=== PATIENT | female | born 1970 | race Caucasian/White ===

== ENCOUNTER 2019-11-29 11:16 | Outpatient (CLI) | payer BC, SELFPAY ==
--- NOTE | ~2019-11-29 | MM_ITS ---
EXAMINATION: MM screening frankie BI w maryjo HISTORY: Screening mammogram TECHNIQUE: Craniocaudal and mediolateral oblique 3-D tomosynthesis images were obtained and synthetic 2-D images were generated. CAD analysis was submitted and interpreted. COMPARISON: 11/01/2018 bilateral diagnostic digital mammogram 10/19/2018, 10/15/2017, 10/01/2016 bilateral digital screening mammogram examinations BREAST PARENCHYMAL COMPOSITION: The breasts are heterogeneously dense, which may obscure small masses . FINDINGS: Stable fibroglandular asymmetry since 10/01/2016.. There is no evidence of suspicious mass, calcification, or architectural distortion to suggest malignancy in either breast. There has been no suspicious interval change. IMPRESSION: 1. No mammographic evidence of malignancy. 2. Recommend routine screening mammography in one year. BI-RADS Category 2: Benign finding(s). Reviewed, dictated and finalized at location A.
== END 2019-11-29 11:17 | disposition home or self-care (01) ==
PROVIDERS: PCP Family Medicine; Visit Provider Family Medicine
DX: Z12.31 Encounter for screening mammogram for malignant neoplasm of breast (principal)
CPT/HCPCS: 77063; 77067

== ENCOUNTER 2020-12-13 08:11 | Outpatient (CLI) | payer BC, SELFPAY ==
--- NOTE | ~2020-12-13 | MM_ITS ---
EXAMINATION: MM screening frankie BI w maryjo HISTORY: Screening mammogram TECHNIQUE: Craniocaudal and mediolateral oblique 3-D tomosynthesis images were obtained and synthetic 2-D images were generated. CAD analysis was submitted and interpreted. COMPARISON: 11/29/2019 bilateral digital screening mammogram 11/01/2018 bilateral diagnostic digital mammogram 10/15/2017, 10/01/2016 bilateral digital screening mammogram examinations BREAST PARENCHYMAL COMPOSITION: The breasts are heterogeneously dense, which may obscure small masses . FINDINGS: Multiple punctate benign microcalcifications are noted bilaterally. There is no evidence of suspicious mass, calcification, or architectural distortion to suggest malignancy in either breast. There has been no suspicious interval change. IMPRESSION: 1. No mammographic evidence of malignancy. 2. Recommend routine screening mammography in one year. BI-RADS Category 2: Benign finding(s). Reviewed, dictated and finalized at location A.
== END 2020-12-13 08:12 | disposition home or self-care (01) ==
LOC: ANHIMG 08:13
PROVIDERS: PCP Family Medicine; Visit Provider Family Medicine
DX: Z12.31 Encounter for screening mammogram for malignant neoplasm of breast (principal)
CPT/HCPCS: 77063; 77067

== ENCOUNTER 2020-12-13 09:45 | Outpatient (RCR) | payer BC, SELFPAY ==
[2020-10-15 09:54] LABS: Hematocrit 42.3 % (37.0-47.0); Hemoglobin 13.8 g/dL (12.0-15.0); Mean Corpuscular HGB Conc 32.6 g/dl (32-36); Mean Corpuscular Hemoglobin 31.5 pg (26-34); Mean Corpuscular Volume 96.6 fl (80-100); Mean Platelet Volume 11.4 fl (7.4-10.4); Platelet Count Result 343 k/mm3 (150-375); Red Blood Count 4.38 M/mm3 (4.2-5.4); Red Cell Distribution Width 15.3 % (11.5-14.5); White Blood Count 8.8 K/mm3 (4.5-10.0)
[2020-10-15 10:39] LABS: Add Urine Microscopic? YES; Appearance Urine Cloudy (Clear); Bacteria Urine Trace /hpf; Bilirubin Urine Negative (Negative); Blood Urine Negative (Negative); Color Urine Yellow (Yellow); Glucose Urine UA Negative (Negative); Ketones Urine Negative (Negative); Leukocyte Esterase Ur Negative LEU/UL (Negative); Mucus Urine Rare /lpf; Nitrate Urine Negative (Negative); Protein Urine Negative (Negative); RBC Urine 0-2 /hpf (0-2); Specific Grav Ur 1.021 (1.001-1.035); Squamous Epithelial Cell Urine Many /hpf (Few); Urobilinogen Urine Negative mg/dL (<2.0); WBC Urine 0-3 /hpf
[2020-10-15 10:48] LABS: Erythrocyte Sedimentation Rate 15 mm/hr (0-20)
[2020-10-15 22:27] LABS: Alanine Aminotransferase 14 U/L (4-35); Albumin Level 4.4 g/dL (3.5-5.1); Alkaline Phosphatase 61 U/L (38-126); Anion Gap 4 mmol/L (8-16); Aspartate Amino Transferase 24 U/L (14-36); Bilirubin,Total 0.8 mg/dL (0.2-1.3); Blood Urea Nitrogen 15 mg/dL (7-17); Calcium 9.3 mg/dL (8.4-10.2); Carbon Dioxide 29 mmol/L (22-30); Chloride 105 mmol/L (98-107); Estimated Glomerular Filt Rate > 60; Glucose 95 mg/dL (65-105); Potassium 4.2 mmol/L (3.4-5.0); Sodium 138 mmol/L (137-145)
[2020-12-13 10:24] LABS: Hematocrit 38.8 % (37.0-47.0); Hemoglobin 12.5 g/dL (12.0-15.0); Mean Corpuscular HGB Conc 32.2 g/dl (32-36); Mean Corpuscular Volume 96.3 fl (80-100); Mean Platelet Volume 11.2 fl (7.4-10.4); Platelet Count Result 310 k/mm3 (150-375); Red Blood Count 4.03 M/mm3 (4.2-5.4); Red Cell Distribution Width 15.5 % (11.5-14.5); White Blood Count 9.1 K/mm3 (4.5-10.0)
[2020-12-13 10:40] LABS: Add Urine Microscopic? YES; Appearance Urine Cloudy (Clear); Bacteria Urine Trace /hpf; Bilirubin Urine Negative (Negative); Blood Urine Negative (Negative); Color Urine Yellow (Yellow); Glucose Urine UA Negative (Negative); Ketones Urine Negative (Negative); Leukocyte Esterase Ur Negative LEU/UL (Negative); Mucus Urine Rare /lpf; Nitrate Urine Negative (Negative); Protein Urine Negative (Negative); RBC Urine 0-2 /hpf (0-2); Specific Grav Ur 1.018 (1.001-1.035); Squamous Epithelial Cell Urine Many /hpf (Few); Urobilinogen Urine Negative mg/dL (<2.0); WBC Urine 0-3 /hpf
[2020-12-13 10:45] LABS: Alanine Aminotransferase 11 U/L (4-35); Albumin Level 3.9 g/dL (3.5-5.1); Alkaline Phosphatase 64 U/L (38-126); Anion Gap 3 mmol/L (8-16); Aspartate Amino Transferase 16 U/L (14-36); Bilirubin,Total 0.1 mg/dL (0.2-1.3); Blood Urea Nitrogen 9 mg/dL (7-17); Calcium 8.8 mg/dL (8.4-10.2); Carbon Dioxide 29 mmol/L (22-30); Chloride 108 mmol/L (98-107); Estimated Glomerular Filt Rate > 60; Glucose 84 mg/dL (65-105); Potassium 3.8 mmol/L (3.4-5.0); Sodium 140 mmol/L (137-145)
[2020-12-13 11:02] LABS: Erythrocyte Sedimentation Rate 17 mm/hr (0-20)
== END 2021-01-13 23:59 | disposition home or self-care (01) ==
LOC: ANHLAB 09:45
PROVIDERS: PCP Family Medicine; Visit Provider Internal Medicine
DX: M32.9 Systemic lupus erythematosus, unspecified (principal)
CPT/HCPCS: 36415; 80053; 81001; 85027; 85652; 99212; G0463

== ENCOUNTER 2021-02-11 13:03 | Outpatient (CLI) | payer BC, SELFPAY ==
--- NOTE | ~2021-02-11 | XR_ITS ---
EXAMINATION: XR chest 2V 02/11/2021 13:22 INDICATION: Fatigue. Dyspnea. PROCEDURE: 2 view chest COMPARISON: No prior studies for comparison. FINDINGS: The lungs are clear. The cardiomediastinal silhouette is within normal limits. There are no pleural effusions. There is no pneumothorax suspected. IMPRESSION: 1: NO ACUTE CARDIOPULMONARY DISEASE. Reviewed, dictated and finalized at location A.
[2021-02-11 13:53] LABS: Basophils Absolute Auto 0.2 K/mm3 (0.0-0.1); Basophils Percent Auto 1.5 % (0.2-1.2); Eosinophils Absolute Auto 0.2 K/mm3 (0-0.3); Eosinophils Percent Auto 1.9 % (0-4.4); Hematocrit 47.5 % (37.0-47.0); Hemoglobin 15.4 g/dL (12.0-15.0); Immature Granulocyte Absolute 0.17 K/mm3 (0.00-0.031); Immature Granulocyte Percent A 1.6 % (0-0.5); Lymphocytes Absolute Auto 3.67 K/mm3 (0.9-3.2); Lymphocytes Percent Auto 33.6 % (18.3-44.2); Mean Corpuscular HGB Conc 32.4 g/dl (32-36); Mean Corpuscular Hemoglobin 30.1 pg (26-34); Mean Platelet Volume 10.5 fl (7.4-10.4); Monocytes Absolute Auto 0.7 K/mm3 (0.1-0.6); Neutrophils Absolute Auto 6.1 K/mm3 (1.3-6.7); Neutrophils Percent Auto 55.4 % (45.5-73.1); Platelet Count Result 425 k/mm3 (150-375); Red Blood Count 5.11 M/mm3 (4.2-5.4); Red Cell Distribution Width 16.4 % (11.5-14.5); White Blood Count 10.9 K/mm3 (4.5-10.0)
[2021-02-11 14:00] LABS: Add Urine Microscopic? YES; Appearance Urine Cloudy (Clear); Bilirubin Urine Negative (Negative); Blood Urine 3+ (Negative); Calcium Oxalate Crystals Urine Present /hpf; Color Urine Amber (Yellow); Glucose Urine UA Negative (Negative); Hyaline Casts Urine 20-29 /lpf; Ketones Urine Negative (Negative); Leukocyte Esterase Ur Negative LEU/UL (Negative); Mucus Urine Few /lpf; Nitrate Urine Negative (Negative); Protein Urine Negative (Negative); RBC Urine 0-2 /hpf (0-2); Squamous Epithelial Cell Urine Occasional /hpf (Few)
[2021-02-11 14:01] LABS: Amylase 66 U/L (30-110); Lipase 175 U/L (23-300)
[2021-02-11 14:05] LABS: Alanine Aminotransferase 29 U/L (4-35); Albumin Level 3.8 g/dL (3.5-5.1); Alkaline Phosphatase 76 U/L (38-126); Anion Gap 10 mmol/L (8-16); Aspartate Amino Transferase 27 U/L (14-36); Bilirubin,Total 0.8 mg/dL (0.2-1.3); Blood Urea Nitrogen 13 mg/dL (7-17); CRP 3.5 mg/dL (<1.0); Carbon Dioxide 26 mmol/L (22-30); Chloride 97 mmol/L (98-107); Estimated Glomerular Filt Rate > 60; Glucose 82 mg/dL (65-110); Potassium 3.6 mmol/L (3.4-5.0); Sodium 133 mmol/L (137-145)
[2021-02-11 14:33] LABS: Thyroid Stimulating Hormone 0.981 uIU/mL (0.465-4.680)
[2021-02-11 16:13] LABS: Erythrocyte Sedimentation Rate 20 mm/hr (0-20)
== END 2021-02-11 13:04 | disposition home or self-care (01) ==
LOC: ANHIMG 13:05
PROVIDERS: Internal Medicine; PCP Family Medicine; Visit Provider Physician Assistant
DX: R53.83 Other fatigue (principal); M79.10 Myalgia, unspecified site; R50.9 Fever, unspecified; R76.0 Raised antibody titer; Z79.899 Other long term (current) drug therapy
CPT/HCPCS: 36415; 71046; 80053; 81001; 82150; 83690; 84443; 85025; 85652; 86140

== ENCOUNTER → 2021-02-14 06:50 | Outpatient (CLI) | payer BC, SELFPAY ==
[2021-02-14 18:53] LABS: SARS-CoV-2 RNA PCR Negative
== END ==
PROVIDERS: PCP Family Medicine; Visit Provider Physician Assistant
DX: R50.9 Fever, unspecified (principal); Z20.822 Contact with and (suspected) exposure to COVID-19
CPT/HCPCS: C9803; U0003; U0005

== ENCOUNTER 2021-04-22 09:17 | Outpatient (RCR) | payer BC, SELFPAY ==
[2021-02-21 09:49] LABS: Hemoglobin 14.5 g/dL (12.0-15.0); Immature Platelet Fraction Pct 7.2 % (0.9-11.2); Mean Corpuscular HGB Conc 32.2 g/dl (32-36); Mean Corpuscular Hemoglobin 30.1 pg (26-34); Mean Corpuscular Volume 93.6 fl (80-100); Mean Platelet Volume 10.9 fl (7.4-10.4); Platelet Count Result 501 k/mm3 (150-375); Red Blood Count 4.81 M/mm3 (4.2-5.4); Red Cell Distribution Width 17.1 % (11.5-14.5); White Blood Count 9.7 K/mm3 (4.5-10.0)
[2021-02-21 09:57] LABS: Add Urine Microscopic? YES; Appearance Urine Cloudy (Clear); Bilirubin Urine Negative (Negative); Blood Urine Negative (Negative); Color Urine Yellow (Yellow); Glucose Urine UA Negative (Negative); Ketones Urine Negative (Negative); Leukocyte Esterase Ur Negative LEU/UL (Negative); Mucus Urine Rare /lpf; Nitrate Urine Negative (Negative); Protein Urine Negative (Negative); RBC Urine 0-2 /hpf (0-2); Specific Grav Ur 1.017 (1.001-1.035); Squamous Epithelial Cell Urine Occasional /hpf (Few); Urobilinogen Urine Negative mg/dL (<2.0); WBC Urine 0-3 /hpf
[2021-02-21 09:57] LABS: Alanine Aminotransferase 20 U/L (4-35); Albumin Level 3.4 g/dL (3.5-5.1); Alkaline Phosphatase 78 U/L (38-126); Anion Gap 5 mmol/L (8-16); Aspartate Amino Transferase 26 U/L (14-36); Bilirubin,Total 0.4 mg/dL (0.2-1.3); Blood Urea Nitrogen 10 mg/dL (7-17); Calcium 9.5 mg/dL (8.4-10.2); Carbon Dioxide 23 mmol/L (22-30); Chloride 110 mmol/L (98-107); Estimated Glomerular Filt Rate > 60; Glucose 119 mg/dL (65-110); Potassium 3.9 mmol/L (3.4-5.0); Sodium 138 mmol/L (137-145)
[2021-02-21 13:24] LABS: Eosinophils Absolute Manual 0.19 K/mm3 (0.02-0.5); Eosinophils Percent Manual 2 % (0-4); Lymphocytes Absolute Manual 2.91 K/mm3 (1.1-4.5); Monocytes Absolute Manual 1.35 K/mm3 (0.1-0.90); Monocytes Percent Manual 14 % (3-9); Neutrophils Percent Manual 54 % (46-73); Platelet Estimate Increased (Adequate); Total Cells Counted 100
[2021-04-22 09:45] LABS: Hematocrit 41.4 % (37.0-47.0); Hemoglobin 13.5 g/dL (12.0-15.0); Mean Corpuscular HGB Conc 32.6 g/dl (32-36); Mean Corpuscular Hemoglobin 31.1 pg (26-34); Mean Corpuscular Volume 95.4 fl (80-100); Mean Platelet Volume 11.2 fl (7.4-10.4); Platelet Count Result 291 k/mm3 (150-375); Red Blood Count 4.34 M/mm3 (4.2-5.4); Red Cell Distribution Width 15.1 % (11.5-14.5); White Blood Count 7.4 K/mm3 (4.5-10.0)
[2021-04-22 10:01] LABS: Add Urine Microscopic? YES; Appearance Urine Clear (Clear); Bacteria Urine Trace /hpf; Bilirubin Urine Negative (Negative); Blood Urine Negative (Negative); Color Urine Yellow (Yellow); Glucose Urine UA Negative (Negative); Ketones Urine Negative (Negative); Leukocyte Esterase Ur Negative LEU/UL (Negative); Mucus Urine Few /lpf; Nitrate Urine Negative (Negative); Protein Urine 1+ mg/dL (Negative); Squamous Epithelial Cell Urine Moderate /hpf (Few)
[2021-04-22 10:04] LABS: Alanine Aminotransferase 19 U/L (4-35); Albumin Level 4.5 g/dL (3.5-5.1); Alkaline Phosphatase 67 U/L (38-126); Anion Gap 10 mmol/L (8-16); Aspartate Amino Transferase 24 U/L (14-36); Bilirubin,Total 0.7 mg/dL (0.2-1.3); Blood Urea Nitrogen 10 mg/dL (7-17); Calcium 9.4 mg/dL (8.4-10.2); Carbon Dioxide 24 mmol/L (22-30); Chloride 106 mmol/L (98-107); Estimated Glomerular Filt Rate > 60; Glucose 102 mg/dL (65-110); Potassium 3.7 mmol/L (3.4-5.0); Sodium 140 mmol/L (137-145)
[2021-04-22 10:45] LABS: Erythrocyte Sedimentation Rate 15 mm/hr (0-20)
[2021-04-25 10:42] LABS: ANCA Screen Negative (Negative)
== END 2021-05-22 23:59 | disposition home or self-care (01) ==
LOC: ANHLAB 09:17
PROVIDERS: PCP Family Medicine; Visit Provider Internal Medicine
DX: M32.9 Systemic lupus erythematosus, unspecified (principal)
CPT/HCPCS: 36415; 80053; 81001; 85025; 85027; 85055; 85652; 86021; 99212; G0463

== ENCOUNTER 2021-06-20 09:01 | Outpatient (RCR) | payer BC, SELFPAY ==
[2021-06-20 09:38] LABS: Hematocrit 41.9 % (37.0-47.0); Hemoglobin 13.7 g/dL (12.0-15.0); Mean Corpuscular HGB Conc 32.7 g/dl (32-36); Mean Corpuscular Hemoglobin 30.4 pg (26-34); Mean Corpuscular Volume 93.1 fl (80-100); Mean Platelet Volume 11.8 fl (7.4-10.4); Platelet Count Result 288 k/mm3 (150-375); Red Cell Distribution Width 15.8 % (11.5-14.5); White Blood Count 9.2 K/mm3 (4.5-10.0)
[2021-06-20 09:50] LABS: Add Urine Microscopic? NO; Appearance Urine Clear (Clear); Bilirubin Urine Negative (Negative); Blood Urine Negative (Negative); Color Urine Yellow (Yellow); Glucose Urine UA Negative (Negative); Ketones Urine Negative (Negative); Leukocyte Esterase Ur Negative LEU/UL (Negative); Nitrate Urine Negative (Negative); Protein Urine Negative (Negative); Specific Grav Ur 1.017 (1.001-1.035); Urobilinogen Urine Negative mg/dL (<2.0)
[2021-06-20 10:08] LABS: Alanine Aminotransferase 15 U/L (4-35); Albumin Level 4.1 g/dL (3.5-5.1); Alkaline Phosphatase 62 U/L (38-126); Anion Gap 7 mmol/L (8-16); Aspartate Amino Transferase 18 U/L (14-36); Bilirubin,Total 0.4 mg/dL (0.2-1.3); Blood Urea Nitrogen 10 mg/dL (7-17); Calcium 9.1 mg/dL (8.4-10.2); Carbon Dioxide 25 mmol/L (22-30); Chloride 104 mmol/L (98-107); Estimated Glomerular Filt Rate > 60; Glucose 97 mg/dL (65-110); Potassium 3.8 mmol/L (3.4-5.0); Sodium 136 mmol/L (137-145)
[2021-06-20 11:19] LABS: Erythrocyte Sedimentation Rate 11 mm/hr (0-20)
== END 2021-09-18 23:59 | disposition home or self-care (01) ==
LOC: ANHLAB 09:01
PROVIDERS: PCP Family Medicine; Visit Provider Internal Medicine
DX: M32.9 Systemic lupus erythematosus, unspecified (principal)
CPT/HCPCS: 36415; 80053; 81003; 85027; 85652; 99212; G0463

== ENCOUNTER 2021-08-15 08:48 | Outpatient (CLI) | payer BC, SELFPAY ==
[2021-08-15 09:14] LABS: Hematocrit 42.2 % (37.0-47.0); Hemoglobin 13.8 g/dL (12.0-15.0); Mean Corpuscular HGB Conc 32.7 g/dl (32-36); Mean Corpuscular Hemoglobin 31.1 pg (26-34); Mean Platelet Volume 10.9 fl (7.4-10.4); Platelet Count Result 293 k/mm3 (150-375); Red Blood Count 4.44 M/mm3 (4.2-5.4); Red Cell Distribution Width 16.5 % (11.5-14.5); White Blood Count 8.8 K/mm3 (4.5-10.0)
[2021-08-15 09:27] LABS: Alanine Aminotransferase 15 U/L (4-35); Albumin Level 4.2 g/dL (3.5-5.1); Alkaline Phosphatase 75 U/L (38-126); Anion Gap 4 mmol/L (8-16); Aspartate Amino Transferase 18 U/L (14-36); Bilirubin,Total 0.5 mg/dL (0.2-1.3); Blood Urea Nitrogen 10 mg/dL (7-17); CRP 1.4 mg/dL (<1.0); Calcium 9.1 mg/dL (8.4-10.2); Carbon Dioxide 28 mmol/L (22-30); Chloride 105 mmol/L (98-107); Estimated Glomerular Filt Rate > 60; Glucose 121 mg/dL (65-110); Potassium 3.8 mmol/L (3.4-5.0); Sodium 137 mmol/L (137-145)
[2021-08-15 10:53] LABS: Erythrocyte Sedimentation Rate 11 mm/hr (0-20)
[2021-08-15 12:09] LABS: Add Urine Microscopic? NO; Appearance Urine Clear (Clear); Bilirubin Urine Negative (Negative); Blood Urine Negative (Negative); Color Urine Yellow (Yellow); Glucose Urine UA Negative (Negative); Ketones Urine Negative (Negative); Leukocyte Esterase Ur Negative LEU/UL (Negative); Nitrate Urine Negative (Negative); Protein Urine Negative (Negative); Specific Grav Ur 1.018 (1.001-1.035); Urobilinogen Urine Negative mg/dL (<2.0)
== END 2021-08-15 08:49 | disposition home or self-care (01) ==
PROVIDERS: PCP Family Medicine; Visit Provider Internal Medicine
DX: M19.90 Unspecified osteoarthritis, unspecified site (principal); M32.9 Systemic lupus erythematosus, unspecified
CPT/HCPCS: 36415; 80053; 81003; 85027; 85652; 86140; 99212; G0463

== ENCOUNTER 2021-10-10 09:17 | Outpatient (CLI) | payer BC, SELFPAY ==
[2021-10-10 09:54] LABS: Hematocrit 43.9 % (37.0-47.0); Hemoglobin 14.1 g/dL (12.0-15.0); Mean Corpuscular HGB Conc 32.1 g/dl (32-36); Mean Corpuscular Hemoglobin 31.2 pg (26-34); Mean Corpuscular Volume 97.1 fl (80-100); Mean Platelet Volume 11.3 fl (7.4-10.4); Platelet Count Result 291 k/mm3 (150-375); Red Blood Count 4.52 M/mm3 (4.2-5.4); White Blood Count 8.7 K/mm3 (4.5-10.0)
[2021-10-10 10:11] LABS: Alanine Aminotransferase 13 U/L (4-35); Albumin Level 4.1 g/dL (3.5-5.1); Alkaline Phosphatase 66 U/L (38-126); Anion Gap 8 mmol/L (8-16); Aspartate Amino Transferase 21 U/L (14-36); Bilirubin,Total 0.5 mg/dL (0.2-1.3); Blood Urea Nitrogen 12 mg/dL (7-17); Calcium 8.8 mg/dL (8.4-10.2); Carbon Dioxide 28 mmol/L (22-30); Chloride 103 mmol/L (98-107); Estimated Glomerular Filt Rate > 60; Glucose 110 mg/dL (65-110); Sodium 139 mmol/L (137-145)
[2021-10-10 10:20] LABS: Erythrocyte Sedimentation Rate 11 mm/hr (0-20)
== END 2021-10-10 09:18 | disposition home or self-care (01) ==
LOC: ANHLAB 09:18
PROVIDERS: PCP Family Medicine; Visit Provider Internal Medicine
DX: M32.9 Systemic lupus erythematosus, unspecified (principal); M19.90 Unspecified osteoarthritis, unspecified site
CPT/HCPCS: 36415; 80053; 85027; 85652; 86140; 99212; G0463

== ENCOUNTER 2021-10-16 11:00 | Outpatient (CLI) | payer BC, SELFPAY ==
[2021-10-16 11:54] LABS: Prothrombin Time 12.5 Seconds (11.1-14.7)
[2021-10-16 11:55] LABS: Partial Thromboplastin Time 29.2 SECONDS (22.3-36.8)
== END 2021-10-16 11:01 | disposition home or self-care (01) ==
LOC: ANHSURGERY 11:04
PROVIDERS: PCP Family Medicine; Visit Provider Surgery
DX: Z01.812 Encounter for preprocedural laboratory examination (principal); M32.9 Systemic lupus erythematosus, unspecified; Z51.81 Encounter for therapeutic drug level monitoring; Z79.899 Other long term (current) drug therapy
CPT/HCPCS: 36415; 85610; 85730

== ENCOUNTER 2021-10-17 01:08 | Day surgery (SDC) | payer BC, SELFPAY ==
[2021-10-13 15:21] VITALS: BMI 23.9
--- NOTE | 2021-10-13 15:44 | PC.NURSE ---
Report to the Outpatient Waiting Room, entrance under the green pavilion located off [facility], at time 6:00 on date 10/17/21. OR Time: 7:30. - You and your visitor will be asked a series of questions to screen for COVID 19 for your protection. - A mask is required within the hospital. One visitor will be allowed to accompany the patient into the hospital. Patients visitor will be instructed to remain with patient at all times or leave the building. We will allow the visitor to come back to the postoperative area when patient is ready. Preoperative COVID Testing Requirements: No COVID Test needed if: (proof is required; if not received patient will have Rapid Test prior to entry) - Patient has received COVID Vaccine at least 14 days prior to procedure date or - Patient has positive COVID test result within last 90 days of surgery date. COVID Test needed if above criteria is not met Patients may have clear liquids (water, carbonated beverages, clear teas, apple juice) until 3 hours prior to surgery (4:30) with a maximum of 20 ounces. - No food from midnight until time of surgery Take the following medications with a SIP of water the morning of surgery: SERTRALINE Medications to discontinue per physician: VITAMINS/SUPPLEMENTS Date to take last dose: 10/13/21 Please no make-up, nail kuwaiti, hairspray, perfume, deodorant, or body powder the day of surgery. No jewelry (including any body piercings) or valuables the day of surgery, leave them at home. Please take a shower or bath the night before, or the morning of, surgery with an antibacterial soap. Wear comfortable, loose fitting clothing. Children are encouraged to wear pajamas. - Jewelry must be removed prior to entering the operating room. Rings and piercings that are not removed may be cut off. - The hospital will not accept responsibility for valuables. - Please leave all valuables, including medications, at home the day of surgery. If you are going home after surgery, a licensed stacker driver must drive you home. - NO public transportation without another adult. - We recommend that an adult stay with you for 24 hours following discharge. - We also recommend that you do not drive, make important decision, drink alcoholic beverages, or take any drugs that were not prescribed by your health care provider for at least 24 hours after your discharge time. Follow any additional instructions given to you from your surgeon. Telephone instructions given to CANDIDO SPENCE and asked if any additional questions and then verbalized understanding. Patient advised to call surgeon office or pre surgery nurse liaison [phone] if any additional questions.
--- NOTE | 2021-10-16 17:04 | PM.HPGS ---
History of Present Illness History of Present Illness Consent: Risks, benefits, and alternatives of placement of a Elaine-cath have been discussed and questions answered. Patient agrees to proceed with procedure. Chief complaint: systemic lupus erythematosus Narrative: Aisha Gannon is a 51 year old female Who is seen at the request of her metallic just Dr. Santiago. She has been benefiting from infusions for the inflammation related to her lupus. She has however, been having trouble with venous access when she goes to the infusions. Therefore, the risks, benefits, possible complications including pneumothorax, bleeding, infection, and infection requiring removal of the port have been described to the patient she seems understand wished to proceed. Review of Systems Constitutional: Constitutional: Reports as per HPI, Reports body ache(s), Reports fatigue and Denies malaise Eyes: Eyes: Denies change in vision and Denies loss of vision ENT: Reports Normal hearing present, Denies change in voice, Denies dizziness, Denies hoarseness and Denies sore throat Cardiovascular: Cardiovascular: Denies chest pain, Denies leg edema and Denies dyspnea Respiratory: Respiratory: Denies cough, Denies dyspnea and Denies wheezing Gastrointestinal: Gastrointestinal: Denies hematochezia, Denies change in bowel habits and Denies heartburn Comments: Irritable bowel disease Genitourinary: Genitourinary: Denies urinary frequency and Denies urinary incontinence Musculoskeletal: Comments: Hx of migraine headaches Irritable bowel disease Lupus Lupus anticoagulant positive Neurologic: Reports Normal hearing present, Denies confusion, Denies dizziness, Denies loss of vision, Denies memory loss and Denies seizure-like activity Comments: Hx of migraine headaches Psychiatric: Psychiatric: Denies confusion, Denies depression and Denies memory loss Endocrine: Endocrine: Denies cold intolerance and Reports fatigue Hematologic/Lymphatic: Hematologic/Lymphatic: Denies easy bleeding and Denies easy bruising Allergic/Immunologic: Allergic/Immunologic: Denies wheezing PMFSH Past Medical History Medical History Hx of migraine headaches Irritable bowel disease Lupus Lupus anticoagulant positive SOB (shortness of breath) Surgical History Surgical History (Updated 10/17/21 @ 06:36 by Toby Graves MD) H/O lithotripsy History of endometrial ablation Family History Family History Father Carcinoma of colon Social History Social History Smoking packs per day: 1 Smoking cigarettes per day: 20.0 Years smoked: 20 Smoking pack-years: 20.00 Smoking status: Former smoker Tobacco type: cigarettes Smoking end date: 07/19/16 Alcohol intake: current Alcohol use details: RARE Substance use: never Substance use type: does not use Living arrangements: with family Gender identity (if verbalized by the patient): Female Spiritual care concerns: No Meds Home Medications and Allergies Home Medications Medication Instructions Recorded Confirmed Type biotin 1,000 mcg chewable tablet 1,000 mcg PO DAILY 06/05/19 10/17/21 History rizatriptan 10 mg tablet See Rx Instructions .ROUTE 01/10/21 10/17/21 Rx .COMPLEX #10 tablet ergocalciferol (vitamin D2) 1,250 See Rx Instructions .ROUTE 03/10/21 10/17/21 Rx mcg (50,000 unit) capsule .COMPLEX #12 cap omeprazole 40 mg PO DAILY 04/22/21 10/17/21 History sertraline 100 mg PO DAILY 04/22/21 10/17/21 History estradiol-norethindrone acet 1 See Rx Instructions .ROUTE 05/12/21 10/17/21 Rx mg-0.5 mg tablet .COMPLEX #84 tablet phentermine 37.5 mg tablet 18.75 mg PO DAILY #30 tablet 05/12/21 10/17/21 Rx methotrexate sodium 2.5 mg tablet 25 mg PO WEEKLY #120 tablet 10/09/21 10/17/21 Rx folic acid 2 mg PO DAILY 10/10/21
--- NOTE | ~2021-10-17 | XR_ITS ---
EXAMINATION: XR fl guide central line place EXAM DATE: 10/17/2021 08:13 INDICATION: Portacatheter insertion. TECHNIQUE: Fluoroscopy used during XR fl guide central line place performed by Dr. Neo Bailey MD. Radiologist was not present for the imaging or procedure. Total fluoroscopic time of 46 secon ds. The DAP for this procedure was 0.24 mGym2. A total of 3 images sent to PACS from the exam. FINDINGS: There is a right-sided portacatheter, IJ approach, tip projecting over cavoatrial junction , expected location. No catheter kinking. Correlate with procedure note. IMPRESSION: Fluoroscopy used during right portacatheter insertion. Reviewed, dictated and finalized at location B.
--- NOTE | ~2021-10-17 | XR_ITS ---
EXAMINATION: XR chest port-a-cath/central EXAM DATE: 10/17/2021 08:27 INDICATION: Portacatheter insertion. TECHNIQUE: Portable AP frontal chest x-ray was obtained. Comparison is made to prior examination from 02/11/2021. FINDINGS: There is a new right-sided IJ approach portacatheter, tip projecting over cavoatrial region . No catheter kinking or evidence of pneumothorax. No acute airspace disease or pleural effusion. Car diomediastinal silhouette is normal. There are mild bony degenerative changes. IMPRESSION: No acute cardiopulmonary findings. Catheter in position. Reviewed, dictated and finalized at location D.
--- NOTE | 2021-10-17 06:35 | P.PNAN_ITS ---
Anes - Initial Pre Proc Eval Procedure: Operation Date: 10/17/21 07:30 Proposed Procedures p Insertion Elaine Cath - Neo Bailey MD Date/Time: 10/17/21 06:35 Surgeon: Neo Bailey MD Pre Op Diagnosis: systemic lupus erythematosus Patient Data Age: 51 Gender: F Height: 1.71 m Weight: 70.31 kg Allergies Allergy/AdvReac Type Severity Reaction Status Date / Time latex Allergy Unknown Rash Verified 10/17/21 06:06 Home Medications Medication Instructions Recorded Confirmed Type biotin 1,000 mcg chewable tablet 1,000 mcg PO DAILY 06/05/19 10/17/21 History rizatriptan 10 mg tablet See Rx Instructions .ROUTE 01/10/21 10/17/21 Rx .COMPLEX #10 tablet ergocalciferol (vitamin D2) 1,250 See Rx Instructions .ROUTE 03/10/21 10/17/21 Rx mcg (50,000 unit) capsule .COMPLEX #12 cap omeprazole 40 mg PO DAILY 04/22/21 10/17/21 History sertraline 100 mg PO DAILY 04/22/21 10/17/21 History estradiol-norethindrone acet 1 See Rx Instructions .ROUTE 05/12/21 10/17/21 Rx mg-0.5 mg tablet .COMPLEX #84 tablet phentermine 37.5 mg tablet 18.75 mg PO DAILY #30 tablet 05/12/21 10/17/21 Rx methotrexate sodium 2.5 mg tablet 25 mg PO WEEKLY #120 tablet 10/09/21 10/17/21 Rx folic acid 2 mg PO DAILY 10/10/21 10/17/21 History Patient hx anesthesia problems: none Family hx anesthesia problems: none Results Review: All pre-operative results and documents have been reviewed as part of the pre-operative evaluation. [facility] Past Medical History Medical History Hx of migraine headaches Irritable bowel disease Lupus Lupus anticoagulant positive SOB (shortness of breath) Surgical History Surgical History (Updated 10/17/21 @ 06:36 by Toby Graves MD) H/O lithotripsy History of endometrial ablation Family History Family History Father Carcinoma of colon Social History Social History Smoking packs per day: 1 Smoking cigarettes per day: 20.0 Years smoked: 20 Smoking pack-years: 20.00 Smoking status: Former smoker Tobacco type: cigarettes Smoking end date: 07/19/16 Alcohol intake: current Alcohol use details: RARE Substance use: never Substance use type: does not use Living arrangements: with family Gender identity (if verbalized by the patient): Female Spiritual care concerns: No Anes - Eval Final PreProcedure Day of Procedure 10/17/21 06:35 Patient weight: normal Heart: regular rate and rhythm Lungs: clear to auscultation Airway: Mallampati scale class 1 Neurological: alert and oriented Last oral intake: >/= 8 hours ASA classification: III Emergent: no Anesthetic plan: proceed Anesthesia type and monitoring: general GIVS and standard monitoring Results Review: All pre-operative results and documents have been reviewed as part of the pre-operative evaluation. Informed Consent: The patient's anesthetic plan and its attendant risks and benefits were discussed with the patient/family/POA. Questions were solicited and answers provided to the satisfaction of the patient/family/POA.
[2021-10-17] MEDS: LACTATED RINGERS 1,000 ML 30 ML IV CONT (06:40)
[2021-10-17 07:08] VITALS: BP 123/81; PULSE 85; RESP 16; TEMP 36.2; O2SAT 100
[2021-10-17] MEDS: KETOROLAC 15 MG/ML VIAL (*BKC) IV PUSH (07:13)
--- NOTE | 2021-10-17 07:17 | WPDHPUPDATE1 ---
History and Physical Update Update Date/Time: 10/17/21 07:17 History and Physical has been reviewed, including an updated exam of the patient. There are NO changes in the patient's condition. Risks, benefits, and alternatives have been discussed and questions answered. Patient agrees to proceed with procedure.
[2021-10-17] MEDS: ceFAZolin 2 GM/D5W 50 ML 2 GM/50 ML BAG IVPB (07:21)
[2021-10-17] MEDS: HEPARIN SODIUM 5,000 UNITS/ML VIAL 5000 UNITS IRRIGATION (07:49)
[2021-10-17 08:18] VITALS: BP 98/61; PULSE 78; RESP 16; O2SAT 98
--- NOTE | 2021-10-17 08:30 | W.PM.PROC2 ---
Procedure Note - Detailed Date of Procedure 10/17/21 Pre-op Diagnosis systemic lupus erythematosus Post-op Diagnosis Same Procedure Performed Ultrasound guided Placement of Elaine-cath Surgeon Neo Bailey MD Medical Service Representative Muna RODRIGUEZ.OR ob gyn physician assistant Anesthesia Local (with 0.25% Marcaine with epinepherine) and Other (GIVS) Indications Patient has SLE and knees periodic infusions to control the disease. 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 Findings Normal vascular anatomy of the right neck Description of Procedure Patient was seen and marked in the pre-op area prior to coming to the OR. Patient was brought to the operating room. Patient was placed supine on the operating table and general IV sedation was induced. The nurse fleet coordinator provided oxygen and IV sedation. Patient's head was carefully turned to the left side while in the supine position and the patient's entire neck and anterior chest on both sides was prepped and draped in the usual sterile fashion. Following this the appropriate time-out was completed confirming procedure and patient. We confirmed that all the needed equipment was present in the room. Following this the ultrasound probe was draped into the field and using the probe we carefully identified the carotid artery and jugular vein on the right neck. We then took a picture of the normal appearing vascular anatomy of the right neck and printed it from the ultrasound to be scanned and placed in the [employer] chart. I marked the skin directly over the Rt. internal jugular vein. I then used an 11 blade knife to make a small danii in the skin. Following this, using the continuous ultrasound guidance, a Cook needle was placed through the skin incision and on into this vein. I then was able to draw back good dark blood. Once this was completed a guidewire using a J-tip was advanced through the needle and then the needle and the guidewire cover were withdrawn. C-arm fluoroscopy was used to confirm that the guidewire was nicely in the venous system. Once this was confirmed with the C - arm, I preceded on by making the pocket for the port on the patient's anterior right chest approximately 3 centimeters below the clavicle overlying the chest wall. Local anesthetic was infiltrated into the skin where there was a transverse incision marked out. Incision was made and we made a pocket inferior to the incision with just a little dissection superior. The Bard low-profile port was tried in the pocket and seemed to fit well. Following this the catheter which had been placed on a tunneling device was tunneled from the port site on the anterior right chest up to the right neck where the small incision had been made slightly larger with an #11 blade knife. Then the catheter was pulled through so that we would have 15 centimeters to put into the central venous system once the dilation took place. Following this we placed the dilator and sheath over the guidewire in the jugular vein and carefully dilated the tract into the central venous system. The guidewire and dilator were then removed, carefully covering the end of the sheath to prevent air embolus. The end of the catheter which had been removed from the tunneling device and the tip checked was then inserted into the sheath and into the neck. I then carefully pulled the 2 arms of the tear-away sheath away as the assistant store manager held the catheter in position with a DeBakey forceps. Following this we checked the position of the catheter with C-arm fluoroscopy confirming that the tip seemed to be in the distal superior vena cava near the junction with the right atrium. I felt that it was in good position and so the rest of the catheter was pulled down toward the feet into the port site. We then measured to the appropriate position to cut the catheter to attach it to the port stem. Then the connector sealing device for the catheter port was placed onto
--- NOTE | 2021-10-17 08:31 | SUR.PHASEII ---
0820 PORTABLE CHEST XRAY TAKEN IN OP RECOVERY.
[2021-10-17 08:40] VITALS: BP 99/61; PULSE 67; RESP 16; O2SAT 99
[2021-10-17 09:10] VITALS: BP 109/56; PULSE 79; RESP 16
== END 2021-10-17 09:17 | disposition home or self-care (01) ==
PROVIDERS: PCP Family Medicine; Visit Provider Surgery
PROC: (CPT 36561; principal; 2021-10-17 07:30)
DX: M32.9 Systemic lupus erythematosus, unspecified (principal); K58.9 Irritable bowel syndrome, unspecified; Z87.891 Personal history of nicotine dependence; F41.8 Other specified anxiety disorders; G43.909 Migraine, unspecified, not intractable, without status migrainosus
CPT/HCPCS: 36561; 77001; C1788; J0690; J1100; J1644; J1885; J2250; J2405; J2704; J3010; J7030; J7120

== ENCOUNTER → 2021-10-31 13:42 | Outpatient (CLI) | payer BC, SELFPAY ==
--- NOTE | ~2021-10-31 | CT_ITS ---
EXAMINATION: CT abdomen pelvis wo con EXAM DATE: 10/31/2021 14:10 INDICATION: N23 - Unspecified renal colic. TECHNIQUE: Spiral CT of the abdomen and pelvis was performed without contrast. Axial, coronal and sag ittal images were reviewed. The dose-length product (DLP) for this examination was 289.29 mGy-cm. T he exposure was tailored according to patient size (auto mA exposure control), and iterative reconstr uction (ASIR) was used as additional dose reduction technique. Comparison is made to prior examinatio n from 10/03/2018. FINDINGS: There is a 2 mm stone in a left kidney inferior calyx, and another in a right kidney inferi or calyx. No ureteral stones or hydronephrosis. The uterus is unremarkable. The bladder is unremark able. The liver, spleen, adrenal glands and pancreas are unremarkable. Gallbladder is unremarkable. No biliary obstruction. There is no retroperitoneal or pelvic lymphadenopathy. The appendix is normal. The stomach and small bowel are unremarkable. There is expected amount of c olonic stool. No free intraperitoneal gas. The heart is normal in size. There are no pericardial or pleural effusions. The lung bases are unremarkable. There are no osteoblastic or osteolytic les ions identified. IMPRESSION: 1. Small bilateral kidney stones. 2. No acute intra-abdominal findings. Reviewed, dictated and finalized at location B.
== END ==
PROVIDERS: Visit Provider Physician Assistant
DX: N23 Unspecified renal colic (principal); N20.0 Calculus of kidney
CPT/HCPCS: 74176

== ENCOUNTER 2022-01-09 09:04 | Outpatient (CLI) | payer BC, SELFPAY ==
--- NOTE | ~2022-01-09 | XR_ITS ---
EXAMINATION: XR fl port a cath w contrast DATE: 01/09/2022 09:37 INDICATION: Other specified disorders of veins. TECHNIQUE: I performed fluoroscopy of the chest during injection of the port catheter with contrast. The number of images was 150. The fluoroscopy exposure time was 0.1 minutes. COMPARISON: CT abdomen and pelvis 10/31/2021, fluoroscopy 10/17/2021 FINDINGS: There is a right internal jugular port with tip in right atrium. During injection, contrast collects around the catheter tip suggesting a fibrin sheath. IMPRESSION: 1. Right internal jugular port with fibrin sheath around the catheter tip. Reviewed, dictated and finalized at location A.
== END 2022-01-09 09:05 | disposition home or self-care (01) ==
PROVIDERS: PCP Family Medicine; Visit Provider Internal Medicine
DX: I87.8 Other specified disorders of veins (principal); M32.9 Systemic lupus erythematosus, unspecified; Z45.2 Encounter for adjustment and management of vascular access device
CPT/HCPCS: 36598; Q9966

== ENCOUNTER 2022-02-10 10:01 | Outpatient (CLI) | payer BC, SELFPAY ==
--- NOTE | ~2022-02-10 | MM_ITS ---
EXAMINATION: MM screening frankie BI w maryjo HISTORY: Screening mammogram TECHNIQUE: Craniocaudal and mediolateral oblique 3-D tomosynthesis images were obtained and synthetic 2-D images were generated. CAD analysis was submitted and interpreted. COMPARISON: 12/13/2020, 11/29/2019, 11/01/2018 bilateral screening mammogram examinations BREAST PARENCHYMAL COMPOSITION: The breasts are heterogeneously dense, which may obscure small masses . FINDINGS: There is no evidence of suspicious mass, calcification, or architectural distortion to sugg est malignancy in either breast. There has been no suspicious interval change. IMPRESSION: 1. No mammographic evidence of malignancy. 2. Recommend routine screening mammography in one year. BI-RADS Category 1: Negative Reviewed, dictated and finalized at location A.
== END 2022-02-10 10:02 | disposition home or self-care (01) ==
LOC: ANHIMG 10:03
PROVIDERS: PCP Family Medicine; Visit Provider Physician Assistant
DX: Z12.31 Encounter for screening mammogram for malignant neoplasm of breast (principal)
CPT/HCPCS: 77063; 77067

== ENCOUNTER 2022-06-01 13:33 | Outpatient (CLI) | payer BC, SELFPAY ==
--- NOTE | ~2022-06-01 | XR_ITS ---
EXAMINATION: XR abdomen/kub 1V INDICATION: Calculus of the kidney TECHNIQUE: Supine views of the abdomen were obtained on 2 radiographs. COMPARISON: 02/08/2015; CT, 10/31/2021 FINDINGS: There appears to be a subtle, stable 3 mm stone of the right kidney lower pole. No definite left kidney stone is identified. No stones are seen along the expected courses of the ureters or at the urinary bladder. A moderate volume of colonic stool is present. The bowel gas pattern is normal. IMPRESSION: 1. Possible right nephrolithiasis. Reviewed, dictated and finalized at location F. E ANALYST
== END 2022-06-01 13:34 | disposition home or self-care (01) ==
PROVIDERS: PCP Family Medicine; Visit Provider Urology
DX: N20.0 Calculus of kidney (principal)
CPT/HCPCS: 74018

== ENCOUNTER 2022-08-19 14:47 | Outpatient (CLI) | payer BC, SELFPAY ==
--- NOTE | ~2022-08-19 | XR_ITS ---
Lumbosacral Spine: AP, oblique, and lateral views Clinical History: Pain Findings: The normal lordotic curve is maintained. The vertebral bodies and posterior elements are i ntact. The intervertebral disc spaces are preserved. The sacroiliac joints are normally outlined. Impression: No significant abnormality. Reviewed, dictated and finalized at [facility]. STAGER Impression: No significant abnormality.
== END 2022-08-19 14:48 | disposition home or self-care (01) ==
LOC: ANHIMG 14:49
PROVIDERS: PCP Family Medicine; Visit Provider Internal Medicine
DX: M54.9 Dorsalgia, unspecified (principal); I87.8 Other specified disorders of veins; M32.9 Systemic lupus erythematosus, unspecified; Z45.2 Encounter for adjustment and management of vascular access device
CPT/HCPCS: 72110

== ENCOUNTER 2022-11-23 10:08 | Outpatient (CLI) | payer BC, SELFPAY ==
--- NOTE | ~2022-11-23 | XR_ITS ---
XR abdomen/kub 1V 11/23/2022 10:24 Indication: Bilateral renal stones Procedure: KUB Comparison: 06/01/2022 Findings: Bowel gas pattern is nonobstructive. Moderate colonic fecal loading. No acute osseous abnor mality. There are calcifications overlying the right kidney, consistent with renal stones. The left k idney is obscured by bowel content. Impression: 1: Probable right nephrolithiasis. Reviewed, dictated and finalized at location B. Impression: 1: Probable right nephrolithiasis.
== END 2022-11-23 10:09 | disposition home or self-care (01) ==
PROVIDERS: PCP Emergency Medicine; Visit Provider Nurse Practitioner Adult Health
DX: N20.0 Calculus of kidney (principal)
CPT/HCPCS: 74018

== ENCOUNTER 2023-02-15 14:54 | Outpatient (CLI) | payer BC, SELFPAY ==
--- NOTE | ~2023-02-15 | XR_ITS ---
EXAMINATION: XR abdomen/kub 1V DATE: 02/15/2023 15:09 INDICATION: Bilateral kidney stones. TECHNIQUE: A supine view of the abdomen on 2 radiographs was obtained. COMPARISON: CT abdomen and pelvis 10/31/2021 FINDINGS: There are no dilated loops of bowel. There is a 3 mm density overlying left kidney. IMPRESSION: 1. 3 mm density overlying left kidney that may be a stone. Reviewed, dictated and finalized at location A.
== END 2023-02-15 14:55 | disposition home or self-care (01) ==
LOC: ANHIMG 14:58
PROVIDERS: PCP Emergency Medicine; Visit Provider Nurse Practitioner Adult Health
DX: N20.0 Calculus of kidney (principal)
CPT/HCPCS: 74018

== ENCOUNTER 2023-02-15 16:43 | Outpatient (CLI) | payer BC, SELFPAY ==
--- NOTE | ~2023-02-15 | CT_ITS ---
EXAMINATION: CT abdomen pelvis wo con DATE: 02/15/2023 17:00 INDICATION: BI RENAL STONES TECHNIQUE: Computed tomography (CT) of the abdomen and pelvis was performed without intravenous contr ast. Automated exposure control and iterative reconstruction technique were employed. The dose-length product was 218.61 mGy-cm. COMPARISON: 10/31/2021. FINDINGS: Lower thorax: The distal end of a catheter tip projects in the right atrium. Lung bases are clear. Liver: Normal. Biliary/Gallbladder: Gallbladder is normal. No bile duct dilation. Pancreas: No mass or duct dilation. Spleen: Normal. Adrenals:No mass. Kidneys: No suspicious mass or hydronephrosis. Multiple punctate bilateral nonobstructing calculi. GI tract: No small or large bowel dilation. Normal appendix. Mesentery/Peritoneum: No ascites, mass, or free air. Retroperitoneum: No mass. Mild atherosclerotic abdominal aortic and/or arterial calcifications. Pelvis: Partially distended, otherwise normal-appearing urinary bladder. Retroverted uterus. Normal o varies. Soft Tissues: Soft tissues and body wall unremarkable. Bones: No acute osseous finding. IMPRESSION: No acute abdominopelvic process detected Reviewed, dictated and finalized at location K.
== END 2023-02-15 16:44 | disposition home or self-care (01) ==
LOC: ANHIMG 16:44
PROVIDERS: PCP Emergency Medicine; Visit Provider Urology
DX: N20.0 Calculus of kidney (principal)
CPT/HCPCS: 74018; 74176

== ENCOUNTER 2023-02-17 13:09 | Outpatient (CLI) | payer BC, SELFPAY ==
--- NOTE | ~2023-02-17 | MM_ITS ---
EXAMINATION: MM screening frankie BI w maryjo HISTORY: Screening mammogram TECHNIQUE: Craniocaudal and mediolateral oblique 3-D tomosynthesis images were obtained and synthetic 2-D images were generated. CAD analysis was submitted and interpreted. COMPARISON: 02/10/2022, 12/13/2020, 11/29/2019 bilateral screening mammogram examinations BREAST PARENCHYMAL COMPOSITION: The breasts are heterogeneously dense, which may obscure small masses . FINDINGS: Scattered bilateral benign calcifications. There is no evidence of suspicious mass, calcifi cation, or architectural distortion to suggest malignancy in either breast. There has been no suspici ous interval change. IMPRESSION: 1. No mammographic evidence of malignancy. 2. Recommend routine screening mammography in one year. BI-RADS Category 2: Benign finding(s). Reviewed, dictated and finalized at location A.
== END 2023-02-17 13:10 | disposition home or self-care (01) ==
LOC: ANHIMG 13:12
PROVIDERS: PCP Emergency Medicine; Visit Provider Emergency Medicine
DX: Z12.31 Encounter for screening mammogram for malignant neoplasm of breast (principal)
CPT/HCPCS: 77063; 77067

== ENCOUNTER 2023-06-23 09:32 | Outpatient (CLI) | payer BC, SELFPAY ==
--- NOTE | ~2023-06-23 | XR_ITS ---
XR abdomen/kub 1V 06/23/2023 09:46 INDICATION: Lateral renal stones TECHNIQUE: KUB COMPARISON: 02/15/2023 FINDINGS: Bowel gas pattern is normal. There is no evidence of free air, mass, organomegaly, ascites or obstruction. No abnormal calculi are seen. The bones appear intact. IMPRESSION: 1: No acute abdominal abnormality identified. Reviewed, dictated and finalized at location B. ER FIXER
== END 2023-06-23 09:33 | disposition home or self-care (01) ==
PROVIDERS: PCP Emergency Medicine; Visit Provider Urology
DX: N20.0 Calculus of kidney (principal)
CPT/HCPCS: 74018

== ENCOUNTER 2024-01-12 08:49 | Outpatient (CLI) | payer BC, SELFPAY ==
--- NOTE | ~2024-01-12 | XR_ITS ---
XR abdomen/kub 1V Ordering provider: Veronica Colon PA-C History: . KANDI RENAL STONES, FOLLOW UP. RECENT ABD PAIN . Comparison: June 23, 2023 FINDINGS: BOWEL: Nonobstructive bowel gas pattern. ORGANOMEGALY: None. SIGNIFICANT PATHOLOGIC CALCIFICATIONS: None. Fecal material is overlapping the kidneys. OTHER: No free air is seen under the diaphragm. IMPRESSION: NO ACUTE ABDOMINAL FINDINGS. Reviewed, dictated and finalized at location A.
== END 2024-01-12 08:50 | disposition home or self-care (01) ==
LOC: ANHIMG 08:53
PROVIDERS: Visit Provider Physician Assistant
DX: N20.0 Calculus of kidney (principal)
CPT/HCPCS: 74018

== ENCOUNTER 2024-03-13 07:12 | Outpatient (CLI) | payer BC, SELFPAY ==
--- NOTE | ~2024-03-13 | MM_ITS ---
EXAMINATION: MM screening frankie BI w maryjo HISTORY: Screening TECHNIQUE: Craniocaudal and mediolateral oblique 3-D tomosynthesis images were obtained and synthetic 2-D images were generated. CAD analysis was submitted and interpreted. COMPARISON: Comparison to multiple prior studies sequentially, with oldest reviewed study dated 11/28. BREAST PARENCHYMAL COMPOSITION: Not dense: There are scattered areas of fibroglandular density. FINDINGS: There is no evidence of suspicious mass, calcification, or architectural distortion to sugg est malignancy in either breast. There has been no suspicious interval change. IMPRESSION: 1. No mammographic evidence of malignancy. 2. Recommend routine screening mammography in one year. BI-RADS Category 1: Negative Reviewed, dictated and finalized at location B.
== END 2024-03-13 07:13 | disposition home or self-care (01) ==
LOC: ANHIMG 07:13
PROVIDERS: Visit Provider Emergency Medicine
DX: Z12.31 Encounter for screening mammogram for malignant neoplasm of breast (principal)
CPT/HCPCS: 77063; 77067

== ENCOUNTER 2024-07-30 09:47 | Emergency (ER) | payer BC, SELFPAY ==
[2024-07-30 09:54] VITALS: BP 117/84; PULSE 75; RESP 16; TEMP 36.4; O2SAT 100
--- NOTE | 2024-07-30 10:16 | ED_ITS ---
HPI - Eye Problem General Chief complaint: Eye Problems Stated complaint: right eye Time Seen by Provider: 07/30/24 10:17 Source: patient, RN notes reviewed and old records reviewed Mode of arrival: ambulatory Limitations: no limitations History of Present Illness HPI Narrative: 54 year old female presents to [facility] with complaints of right eye lid swelling since yesterday morning and it did seem better last night but this morning she has more swelling and redness of upper right eyelid.Patient reports no drainage from her eye, sclera and conjunctiva are clear. Patient reports no sharp pain to her right eye or any change in her vision.Patient reports that she does have Lupus and it does tend to affect her skin and is on daily hydroxychloroquine and takes monthly infusions of belimumab. Patient reports that she has yearly eye exams and is scheduled for exam in September. Visual acuity today 20/40 Right eye, 20/30 Left eye without correction worn. MD chief complaint: other (right upper eyelid swollen and red with some discomfort) Onset (ago): day(s) (since yesterday morning) Onset description: sudden Duration: constant Location: right eye Eye Symptoms: other (redness and swelling of right upper eyelid) Severity scale (1-10): 3 Treatments Prior to Arrival: OTC eye drops (stye medication) Related Data Home Medications ?Medication ?Instructions ?Recorded ?Confirmed ?Last Taken ?Type biotin 1,000 mcg chewable tablet 1,000 mcg PO DAILY 06/05/19 10/12/23 10/13/21 History aspirin 81 mg tablet,delayed 81 mg PO DAILY 05/22/22 10/12/23 Unknown History release hydroxychloroquine 200 mg tablet 200 mg PO DAILY 03/18/23 10/12/23 Unknown History Allergies Allergy/AdvReac Type Severity Reaction Status Date / Time amoxicillin Allergy Severe Rash Verified 07/30/24 10:01 latex Allergy Unknown Rash Verified 07/30/24 10:01 Review of Systems Review of Systems: CONSTITUTIONAL: Denies fever, chills, or sweats. EYES: Denies visual changes. Reports redness and swelling of right upper eyelid since yesterday morning, no sclera redness or conjunctiva redness., denies any sharp pain to right eye ENT: Denies rhinorrhea, congestion, sore throat, or otalgia. CARDIOVASCULAR: Denies chest pain, palpitations, or edema. RESPIRATORY: Denies cough or dyspnea. SKIN: Denies rash or itching. NEUROLOGIC: Denies headache All systems reviewed & are unremarkable except as noted in HPI and below PMFSH Past Medical History Medical History Back pain Poor venous access SOB (shortness of breath) Lupus anticoagulant positive Lupus Hx of migraine headaches Irritable bowel disease Surgical History Surgical History H/O lithotripsy History of endometrial ablation Family History Family History Father Carcinoma of colon Social History Social History Smoking packs per day: 1 Smoking cigarettes per day: 20.0 Years smoked: 20 Smoking pack-years: 20.00 Smoking status: Former smoker Tobacco type: cigarettes Smoking end date: 07/19/16 Alcohol intake: current Alcohol use details: RARE Substance use: never Substance use type: does not use Living arrangements: with family Gender identity (if verbalized by the patient): Female Spiritual care concerns: No Comments At time of signature, agree with nursing past medical, surgical, social and family history. There is no relevant family history pertinent to the presenting complaint Exam Narrative: GENERAL: Well-appearing, well-nourished, and in no acute distress. HEAD: Normocephalic, atraumatic. EYES: PERRLA and EOMI. Upper right eyelid red with swelling, no drainage. No periorbital cellulitis noted. Sclera and conjunctivae clear, no change in vision reported, denies any sharp pain to her right eye. ENT: Nares clear, no rhinorrhea or epistaxis. Mucous membranes moist. NECK: Supple. no lymphadenopathy CHEST: Clear to auscultation. No respiratory distress.SAO2 100% on room air HEART: Regular rate and rhythm. No murmur heard. Normal peripheral pulses. SKIN: Warm, dry, no rash. NEURO: No focal deficits. Alert and oriented x3. Course Course Emergency Course: Patient is aware of diagnosis, understands and agrees to treatment plan. Anticipatory guidance given. Patient agrees to follow-up as directed and is aware of reasons to seek care at the emergency department. Portions of this record may have been created with voice recognition software Level of Care: Express Care Visit Vital Signs Vital signs: Vital Signs Temperature 36.4 C L 07/30/24 09:54 Pulse Rate 75 07/30/24 09:54 Respiratory Rate 16 07/30/24 09:54 Blood Pressure 117/84 07/30/24 09:54 Pulse Oximetry 100 07/30/24 09:54 Oxygen Delivery Room Air 07/30/24 09:54 Temperature 36.4 C L 07/30/24 09:54 Pulse Rate 75 07/30/24 09:54 Respiratory Rate 16 07/30/24 09:54 Blood Pressure 117/84 07/30/24 09:54 Pulse Oximetry 100 07/30/24 09:54 Oxygen Delivery Room Air 07/30/24 09:54 Reviewed MDM - Eye Problem MDM Narrative Medical decision making narrative: Consideration of the following conditions may be warranted for the presenting problem, they are not final diagnoses: Bacterial conjunctivitis, allergic conjun ctivitis, viral conjunctivitis, foreign body, blepharitis, chalazion, hordeolum, corneal abrasion.? Exam findings show no acute concerns or changes; patient is non-toxic appearing and is in no distress.? Patient is appropriate for outpatient treatment and follow-up. Differential Diagnosis Differential diagnosis: Likely other (right upper eye lid swelling ,right upper eyelid cellulitis, stye, discomfort of right upper eyelid) Medical Records Attestation: I reviewed the patient's medical records. Critical Care Time Critical Care Time Critical Care Time: No Discharge Plan Discharge Clinical Impression: Pain and swelling of upper eyelid of right eye Patient Disposition: Home, Self-Care Condition: Stable Instructions: Antibiotic Form, Eyelid Swelling (ED) Additional Instructions: Cold compresses to the eyes for comfort May need warm compresses to remove debris in the morning When cleaning the eyes used a washcloth in one direction then change washcloths or use a cotton ball in one direction and then his cotton balls Eyedrops as directed--may be more soothing if left in the refrigerator Do not share medicine--do not touch the eye with the medicine Tylenol or ibuprofen for pain Avoid screen time--television, computer, tablet or phone. Also no reading or driving Follow-up with PCP or sour bleaching pleater as directed you have no improvement 48 hours or sooner if increased symptoms If your symptoms persist, change or worsen significantly before you can contact your personal physician then please, without delay, go to the emergency department for further evaluation. Follow-up with PCP in 7-10 days or sooner if needed Any change in vision go directly to the emergency room Take Medrol dose pack as prescribed Patient Language: Yakut Prescriptions: New ofloxacin 0.3 % drops See Rx Instructions .ROUTE .COMPLEX Qty: 10 0RF Rx Instructions: put 1-2 drps into affected eye(s) every 2-4 h x 2 days, then 1-2 drps 4 times/day days 3-7 methylprednisolone [Medrol (Jp)] 4 mg tablets,dose pack See Rx Instructions .ROUTE .COMPLEX Qty: 21 0RF Rx Instructions: orally per package directions No Action aspirin [Aspir-81] 81 mg Tablet,Delayed Release (Dr/Ec) 81 mg PO DAILY hydroxychloroquine 200 mg tablet 200 mg PO DAILY biotin 1,000 mcg tablet,chewable 1,000 mcg PO DAILY lidocaine-prilocaine 2.5-2.5 % cream 1 applic topical ONCE PRN (Reason: patient has a port) Qty: 5 6RF Benlysta 400 mg recon soln 400 mg IV ONCE Qty: 1 12RF Rx Instructions: administer over 60 mins ergocalciferol (vitamin D2) 1,250 mcg (50,000 unit) capsule See Rx Instructions .ROUTE .COMPLEX Qty: 12 1RF Dose Instruction: TAKE 1 CAPSULE BY MOUTH WEEKLY Rx Instructions: TAKE 1 CAPSULE BY MOUTH WEEKLY sertraline 100 mg tablet See Rx Instructions .ROUTE .COMPLEX Qty: 90 1RF Dose Instruction: TAKE 1 TABLET BY MOUTH DAILY Rx Instructions: TAKE 1 TABLET BY MOUTH DAILY omeprazole 40 mg capsule,delayed release(DR/EC) 40 mg PO DAILY Qty: 90 1RF rizatriptan 10 mg tablet See Rx Instructions .ROUTE .COMPLEX Qty: 10 1RF Dose Instruction: TAKE 1 TABLET BY MOUTH ONCE. MAY REPEAT DOSE AFTER 2 HOURS IF NEEDED. Rx Instructions: TAKE 1 TABLET BY MOUTH ONCE. MAY REPEAT DOSE AFTER 2 HOURS IF NEEDED. DUE FOR APPOINTMENT IN phentermine 37.5 mg tablet 37.5 mg PO DAILY Qty: 30 1RF Follow-up/Referrals: PHYSICIAN,GAS MASK ASSEMBLER [Primary Care Provider] - Time of Disposition: 10:35 Quality [place] Coma Scale Eyes: Open Verbal: Oriented and Alert Motor: Follows Commands [place] Coma Total Score: 15
== END 2024-07-30 10:38 | disposition home or self-care (01) ==
PROVIDERS: Emergency Provider Registered Nurse
DX: H02.841 Edema of right upper eyelid (principal); H02.9 Unspecified disorder of eyelid; M32.9 Systemic lupus erythematosus, unspecified; Z87.891 Personal history of nicotine dependence; Z79.82 Long term (current) use of aspirin
CPT/HCPCS: 99213; G0463

== ENCOUNTER 2025-01-11 08:36 | Outpatient (CLI) | payer BC, SELFPAY ==
--- NOTE | ~2025-01-11 | XR_ITS ---
XR abdomen/kub 1V Ordering provider: Veronica Colon PA-C History: . KANDI RENAL STONES . Comparison: January 12, 2024 FINDINGS: BOWEL: Nonobstructive bowel gas pattern. ORGANOMEGALY: None. SIGNIFICANT PATHOLOGIC CALCIFICATIONS: None. Gases overlapping the kidneys. OTHER: No free air is seen under the diaphragm. IMPRESSION: NO ACUTE ABDOMINAL FINDINGS. No definite stones seen. Noncontrast CT abdomen is better for evaluation. Reviewed, dictated and finalized at location A.
== END 2025-01-11 08:37 | disposition home or self-care (01) ==
PROVIDERS: Visit Provider Physician Assistant
DX: N20.0 Calculus of kidney (principal)
CPT/HCPCS: 74018

== ENCOUNTER 2025-04-24 08:05 | Outpatient (CLI) | payer BC, SELFPAY ==
--- NOTE | ~2025-04-24 | MM_ITS ---
EXAMINATION: MM screening frankie BI w maryjo HISTORY: Screening TECHNIQUE: Craniocaudal and mediolateral oblique 3-D tomosynthesis images were obtained and synthetic 2-D images were generated. CAD analysis was submitted and interpreted. COMPARISON: Comparison to multiple prior studies sequentially, with oldest reviewed study dated , 11/29/2019 BREAST PARENCHYMAL COMPOSITION: There are scattered areas of fibroglandular density. FINDINGS: There is no evidence of suspicious mass, calcification, or architectural distortion to suggest malignancy in either breast. Venous access port overlies and partially obscures the right axilla. IMPRESSION: 1. No mammographic evidence of malignancy. 2. Recommend routine screening mammography in one year. BI-RADS Category 1: Negative Reviewed, dictated and finalized at location B.
--- OUTSIDE RECORDS SUMMARY | 2025-04-24 08:11 | XMS_ITS | Clinical Summary ---
Author Organization [facility] Physician Of [facility] [address] [place] [phone] Care Team Providers Care Hull Grinder Name Role Phone Davian Lawton MD Primary Care Provider [phone] Allergies Active Allergy Reactions Criticality Noted Date Comments Amoxicillin Rash Medium 11/27/2022 Latex Hives,Rash Reaction: Hives, Skin Rash, Medications omeprazole (PriLOSEC) 40 mg capsule take 1 capsule by oral route every day before a meal 0 0 6 Active ergocalciferol (VITAMIN D2) 50,000 unit capsule take 1 capsule by oral route every week 0 0 6 Active rizatriptan (MAXALT) 10 mg tablet TAKE 1 TABLET BY MOUTH 1 TIME. MAY REPEAT DOSE AFTER 2 HOURS NEEDED 3 Active phentermine (ADIPEX-P) 37.5 mg tablet Take 0.5 tablets (18.75 mg total) by mouth daily 3 Active ketorolac (TORADOL) 10 mg tablet Take 1 tablet (10 mg total) by mouth as needed 3 Active folic acid (FOLVITE) 1 mg tablet Take 2 tablets (2,000 mcg total) by mouth daily 3 Active tamsulosin (FLOMAX) 0.4 mg extended release capsule Take 1 capsule (0.4 mg total) by mouth as needed 3 Active clobetasoL (TEMOVATE) 0.05 % ointmentIndicatio ns:Rash and other nonspecific skin eruption Apply topically 2 (two) times a day 60 g 2 4 Active Additional Information Patient not taking.Reported on 01/26/2025 belimumab (BENLYSTA) auto-injectorIndi cations:Systemic lupus erythematosus, unspecified SLE type, unspecified organ involvement status (HCC) Inject 1 mL (200 mg total) under the skin every 7 days 4 mL 2 4 Active lidocaine 5 % cream Apply 1 Application topically every 30 (thirty) days 38 g 2 5 Active hydroxychloroquin e (PLAQUENIL) 200 mg tabletIndications :Systemic Lupus Erythematosus Take 1.5 tablets (300 mg total) by mouth daily 135 tablet 2 5 026 Active Active Problems Problem Noted Date Diagnosed Date Systemic lupus erythematosus 10/23/2022 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 Otolaryngology [address] [place] [address] [place] [phone] Annemarie Bowden, FRANCESCA Dysphonia (Primary Dx); Systemic lupus erythematosus, unspecified SLE type, unspecified organ involvement status (HCC) 02/21/2025 8:40 AM CDT Office Visit [facility] - [facility] ENT [address] [place] [address] [place] [phone] Shahbaz Muhammad MD Systemic lupus erythematosus, unspecified SLE type, unspecified organ involvement status (HCC) 01/31/[address] [facility] Otolaryngology [address] [place], [place] [phone] AnnaUlissesBebaMS wilmar 01/31/2025 Results Follow-Up [facility] Rheumatology [address] [place] [address] [place] [phone] Malik Bone MD Comprehensive metabolic panel, Vitamin D 25 hydroxy, CBC with Diff, BJ, Additional followed-up results: 6 01/30/[address] [facility] Otolaryngology [address] [place] [address] Beba Anna MS 01/26/2025 11:13 AM CDT - 01/26/2025 11:59 PM CDT Hospital Encounter [facility] [address] [place] [address] Systemic lupus erythematosus, unspecified SLE type, unspecified organ involvement status (HCC) Discharge Disposition: Discharge to home or self care 01/26/2025 11:[address] [facility] Endocrinology Metabolism and Lipid [address] [place] [address] [place] [phone] Systemic lupus erythematosus, unspecified SLE type, unspecified organ involvement status (HCC) 01/26/2025 9:45 AM CDT Office Visit [facility] Rheumatology [address] [place] [address] [place] [address] Malik Bone MD Systemic lupus erythematosus, unspecified SLE type, unspecified organ involvement status (HCC) (Primary Dx); Long-term use of hydroxychloroquine from Last 3 Months Surgical History Surgery Date Site/Laterality Comments OTHER SURGICAL HISTORY larygnoscopy EXTRACORPOREAL SHOCK WAVE LITHOTRIPSY Lef t lithotripsy OTHER SURGICAL HISTORY 2013 Right lithotripspy ABLATION ablasion LOOP ELECTROSURGICAL EXCISION PROCEDURE leep Medical History Medical History Date Comments Gastroesophageal reflux disease GERD Hx Other Medical bamboo 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 Hx Other Medical lupus Autoimmune disease 2016, Lupus diagnosis 2017 Family History Medical History Relation Name Comments Cancer Other 1 Sister - Kidney Cancer Cancer Other 2 Dad - Colon, Diabetes Diabetes Other 2 Dad - Colon, Diabetes Hypertension Other 2 Dad - Colon, Diabetes Colon cancer Other 3 Family history of Cancer, colon; Hypertension Other 4 Family history of Hypertension; Relation Name Status Comments Other 1 Sister - Kidney Cancer Alive Other 2 Dad - Colon, Diabetes Alive Other 3 Other 4 Social History Tobacco Use Types Packs/Day Years Used Date Smoking Tobacco: Former Cigarettes Q uit: 07/19/2014 Smokeless Tobacco: Never Tobacco Cessation:Counseling Given: Not Answered Alcohol Use Standard Drinks/Week Comments Yes 0 (1 standard drink = 0.6 oz pur e alcohol) Hunger Vital Sign Answer Date Recorded Within the past 12 months, y ou worried that your food would run out before you got the money to buy more. Never true 05/28/20 23 Within the past 12 months, t he food you bought just didn't last and you didn't have money to get more. Never true 05/28/2023 Personal Safety Answer Date Recorded Have you ever been in or are you currently in a harmful physical or emotional relationship or is someone making you feel afraid or unsafe? Denies 07/23/2023 Comments Unknown Sex and Gender Information Value Date Recorded Sex Assigned at Not on file Legal Sex Female 4:16 AM RN MANAGED CARE Gender Identity Not on file Sexual Orientation Not on file Obstetrics History Last Filed Vital Signs Vital Sign Reading Time Taken Comments Blood Pressure 102/67 01/26/2025 9:49 AM CDT Pulse 78 01/26/2025 9:49 AM CDT Temperature 36.5 C (97.7 F) 01/26/2025 9:49 AM CDT Respiratory Rate 17 07/23/2023 8:45 AM RN MANAGED CARE Oxygen Saturation 100% 11/16/2023 9:57 AM CDT Inhaled Oxygen Concentration - - Weight 68.5 kg (151 lb) 02/21/2025 8:22 AM CDT Height 172.7 cm (5' 8) 02/21/2025 8:22 AM CDT Body Mass Index 22.96 02/21/2025 8:22 AM CDT Plan of Treatment Health Maintenance Due Date Last Done Comments Breast Cancer Screening-Mammogram 1972 Cervical Cancer Screening 1972 Colon Cancer Screening-Colonoscopy 1972 Depression Screening 1972 DTaP/Tdap/Td Vaccine (1 - Tdap) 1983 Regular Well Visit/Exam 18-64 1990 Pneumococcal vaccine <65 (1 of 2 - PCV) 1991 Zoster Vaccine (1 of 2) 1991 Covid-19 Vaccine (3 - season) 03/19/202509/2021, 09/22/2020 Influenza Vaccine (#1) 2025 08/10/2019, 2017 Hepatitis B Screening Completed 10/23/2022 Hepatitis C Screening Completed 10/23/2022, 016 Procedures Procedure Name Priority Date/Time Associated Diagnosis Comments CBC WITH DIFF, BJ Routine 01/26/2025 11: 13 AM CDT Systemic lupus erythematosus, unspecified SLE type, unspecified organ involvement status (HCC) URINALYSIS, MICROSCOPIC ONLY Routine 01/26/2025 11:13 AM CDT Systemic lupus erythematosus, unspecified SLE type, unspecified organ involvement status (HCC) C3 COMPLEMENT Routine 01/26/2025 11:13 AM CDT Systemic lupus erythematosus, unspecified SLE type, unspecified organ involvement status (HCC) C4 COMPLEMENT Routine 01/26/2025 11:13 AM CDT Systemic lupus erythematosus, unspecified SLE type, unspecified organ involvement status (HCC) ANTI-DOUBLE STRANDED DNA ANTIBODIES Routine 01/26/2025 11:13 AM CDT Systemic lupus erythematosus, unspecified SLE type, unspecified organ involvement status (HCC) PROTEIN / CREATININE RATIO, URINE, RANDOM Routine 01/26/2025 11:13 AM CDT Systemic lupus erythematosus, unspecified SLE type, unspecified organ involvement status (HCC) URINALYSIS AND REFLEX TO MICROSCOPIC Routine 01/26/2025 11:13 AM CDT Systemic lupus erythematosus, unspecified SLE type, unspecified organ involvement status (HCC) VITAMIN D 25 HYDROXY Routine 01/26/2025 11:13 AM CDT Systemic lupus erythematosus, unspecified SLE type, unspecified organ involvement status (HCC) COMPREHENSIVE METABOLIC PANEL Routine 01/26/2025 11:13 AM CDT Systemic lupus erythematosus, unspecified SLE type, unspecified organ involvement status (HCC) HEPATITIS C ANTIBODY Routine 10/23/2022 2:58 PM CDT Systemic lupus erythematosus, unspecified SLE type, unspecified organ involvement status (HCC) High risk medication use from Last 3 Months or Most Recently Relevant to Health Maintenance Results * (ABNORMAL) CBC with Diff, BJ (01/26/2025 11:13 AM CDT) White Blood Count 6.72 3.80 - 9.90 K/cumm [facility] Comment: Red Blood Count 5.14 3.90 - 5.20 M/cumm [facility] Hemoglobin 15.1 11.9 - 15.5 g/dL [facility] Hematocrit 45.6(H) 35.6 - 45.5 % [facility] Platelet Count 248 150 - 400 K/cumm [facility] MCV 88.7 81.3 - 96.4 fl [facility] MCH 29.4 27.1 - 33.3 pg [facility] MCHC 33.1 32.3 - 35.7 g/dL [facility] MPV 13.3(H) 9.1 - 12.3 fl [facility] RDW SD 44.4 35.7 - 48.1 fL [facility] RDW CV 13.6 11.1 - 14.9 % [facility] Neut Abs 3.85 1.50 - 6.50 K/cumm [facility] Imm Gran Abs 0.02 0.00 - 0.10 K/cumm [facility] Lymph Abs 1.98 0.80 - 3.30 K/cumm [facility] [place] Abs 0.74 0.20 - 0.80 K/cumm [facility] Eos Abs 0.09 0.00 - 0.50 K/cumm [facility] Baso Abs 0.04 0.00 - 0.10 K/cumm [facility] Neut Pct 57.3 % [facility] Imm Gran Pct 0.3 % [facility] Lymph Pct 29.5 % [facility] [place] Pct 11.0 % [facility] Eos Pct 1.3 % [facility] Baso Pct 0.6 % [facility] NRBC Abs 0.00 0.00 - 0.01 K/cumm [facility] 01/26/2025 11:1 3 AM CDT 01/26/2025 12:35 PM CDT Narrative [facility] - 01/26/2025 4:40 PM CDT Testing performed at [facility] - [address] [place] [id number]. Malik Bone MD LAB BLOOD ORDERABLES Fin al Result [facility] [place] [facility] * Anti-double stranded DNA abs (01/26/2025 11:13 AM CDT) Pathologist [facility] dsDNA Ab 1.0 <=4.0 IUnits/mL Comment: Interpretive Data Negative: < or = 4 IUnits/mL Indeterminate: 5 - 9 IUnits/mL Positive: > or = 10 IUnits/mL Current interpretive data was last revised on 2016. Blood 01/26/2025 11:1 3 AM CDT 01/26/2025 3:08 PM CDT Malik Bone MD LAB BLOOD ORDERABLES Fin al Result Performing Organization Address City/[facility] Co de Phone Number [facility] Department [place] [address] * C4 complement (01/26/2025 11:13 AM CDT) Pathologist [facility] Complement C4 26.1 10.0 - 40.0 mg/dL Blood 01/26/2025 11:1 3 AM CDT 01/26/2025 3:08 PM CDT Malik Bone MD LAB BLOOD ORDERABLES Fin al Result Performing Organization Address [facility] Co de Phone Number [facility] [place] [address] * (ABNORMAL) Urinalysis reflex to microscopic (01/26/2025 11:13 AM CDT) Color, ur Yellow Yellow Clarity, ur Clear Clear [facility] Specific gravity, ur 1.030 1.003 - 1.030 [facility] pH, urine 6.0 [facility] Comment: Interpretive Data U rine pH is affected by diet, medications, systemic acid-base disturbances, and renal tubular function. pH may affect urinary stone formation. For example, urine pH below 6.0 may help reduce the tendency for calcium phosphate stones and pH greater than 6.0 may reduce the tendency for uric acid stone formation. Source: [facility] Current Interpretive Data was last revised on 2017 Protein, ur ql 1+(A) Negative [facility] Glucose, ur ql Negative Negative [facility] Ketones, ur Negative Negative [facility] Bilirubin, ur Negative Negative [facility] Blood, ur Negative Negative [facility] Urobilinogen, ur 2.0(A) <2.0 mg/dL [facility] Nitrite, ur Negative Negative [facility] Leukocyte esterase, ur Negative Negative [facility] UA reflex comment Reflex to microscopic UA will be performed. [facility] Urine 01/26/2025 11:1 3 AM CDT 01/26/2025 3:08 PM CDT Malik Bone MD LAB URINE ORDERABLES Fin al Result [facility] Department [place] [address] * Protein / creatinine ratio, urine, random (01/26/2025 11:13 AM CDT) Protein, ur, quant 18.1 mg/dL Comment: Interpretive Data No reference range established. Current interpretive data was last revised 2018. Creatinine Ur 446.6 mg/dL [facility] Comment: Interpretive Data No reference range established. Current interpretive data was last revised 2018. Protein/creatinin e ratio 40.5 0.0 - 180.0 mg/g CR [facility] Urine 01/26/2025 11:1 3 AM CDT 01/26/2025 3:08 PM CDT Malik Bone MD LAB URINE ORDERABLES Fin al Result [facility] Department [place] [address] * Vitamin D 25 hydroxy (01/26/2025 11:13 AM CDT) Vitamin D 51.3 20.0 - 100.0 ng/mL [facility] Comment: VITAMIN D DEFICIENCY = LESS THAN or EQUAL TO 20 ng/mL VITAMIN D INSUFFICIENCY = 21 - 29 ng/mL VITAMIN D SUFFICIENT = 30-100 ng/mL Blood 01/26/2025 11:1 3 AM CDT 01/26/2025 12:35 PM CDT Malik Bone MD LAB BLOOD ORDERABLES Fin al Result Performing Organization Address [facility] Co de Phone Number [facility] * (ABNORMAL) Urinalysis, microscopic only (01/26/2025 11:13 AM CDT) WBC, ur 0-5 0 - 5 /HPF RBC, ur 0-2 0 - 2 /HPF [facility] Epithelial cells, squamous, ur 6-10(A) 0 - 5 /HPF [facility] Comment:Suggestive of contam ination. Consider recollection by clean catch. Mucous, ur Present(A ) [facility] Hyaline casts, ur 11-20(A) 0 - 10 /LPF [facility] Urine 01/26/2025 11:1 3 AM CDT 01/26/2025 3:08 PM CDT Malik Bone MD LAB URINE ORDERABLES Fin al Result Performing Organization Address City/[facility] Co de Phone Number [facility] Department [place] [address] * C3 complement (01/26/2025 11:13 AM CDT) Complement C3 169.0 90.0 - 180.0 mg/dL Blood 01/26/2025 11:1 3 AM CDT 01/26/2025 3:08 PM CDT Malik Bone MD LAB BLOOD ORDERABLES Fin al Result [facility] [place] [address] * Comprehensive metabolic panel (01/26/2025 11:13 AM CDT) Total Protein 7.3 6.1 - 8.4 g/dL [facility] Albumin 4.5 3.5 - 5.2 g/dL [facility] Calcium 9.8 8.6 - 10.3 mg/dL [facility] BUN 11 7 - 23 mg/dL [facility] Total Bilirubin 0.49 0.20 - 1.40 mg/dL [facility] Alk Phos, Total 82 35 - 129 IU/L [facility] AST (SGOT) 15 11 - 47 IU/L [facility] ALT (SGPT) 18 6 - 53 IU/L [facility] Creatinine 0.88 0.60 - 1.10 mg/dL [facility] Sodium 140 135 - 145 mmol/L [facility] Potassium 4.3 3.3 - 5.1 mmol/L [facility] Chloride 102 95 - 107 mmol/L [facility] CO2 Content 27 21 - 29 mmol/L [facility] Glucose 85 64 - 99 mg/dL [facility] Comment: NONFASTING GLUCOSE RANGE = 64-199 mg/dL FASTING GLUCOSE 64 - 99 = NORMAL FASTING GLUCOSE 100 - 125 = IMPAIRED FASTING GLUCOSE FASTING GLUCOSE >=126 = PROVISIONAL DIAGNOSIS OF DIABETES eGFR 79.0 >60.0 mL/min/1.7 3 m2 [facility] Blood 01/26/2025 11:1 3 AM CDT 01/26/2025 12:35 PM CDT Malik Bone MD LAB BLOOD ORDERABLES Fin al Result [facility] * Hepatitis C antibody (10/23/2022 2:58 PM CDT) Hep C Ab NON-REACTI VE NON-REACT VERN [facility] SIGNAL TO CUT-OFF 0.07 <1.00 [facility] Comment: HCV antibody was non-reactive. There is no laboratory evidence of HCV infection. In most cases, no further action is required. However, if recent HCV exposure is suspected, a test for HCV RNA (test code 82869) is suggested. For additional information please refer to http://education.[employer]/faq/ZQK64p1 (This link is being provided for informational/ educational purposes only.) Blood 10/23/2022 2:58 PM CDT 10/23/2022 2:59 PM CDT Narrative [facility] - 10/27/2022 10:19 AM CDT FASTING:NO FASTING: NO Zhao Lopez MD LAB MICROBIOLOGY - GENERAL ORDERABLES Final Result Performing Organization Address [facility] Co de Phone Number [facility] [address] [place] [phone] from Last 3 Months or Most Recently Relevant to Health Maintenance [place] Care Teams Hull Grinder Relationship Specialty Start Date End Date Davian Lawton MD [facility] [place] [address] PCP - General Family Medicine 08/04/23
--- OUTSIDE RECORDS SUMMARY | 2025-04-24 08:11 | XMS_ITS | Encounter Summary ---
Author Organization [facility] Address [address] [place] [address] Care Team Providers Care Education Analyst Name Role Phone Unavailable Primary Care Provider Unavailabl e Encounter Details Date Type Department Care Team (Late st Contact Info) Description 03/20/2021 Lab Requisition [facility] [address] [place] [phone] Vinay Cardona MD [address] [place], [place] [id number] Social History Tobacco Use Types Packs/Day Years Used Date Smoking Tobacco: Never Assessed Comments Unknown Sex and Gender Information Value Date Recorded Sex Assigned at Not on file Legal Sex Female 4:04 PM CDT Gender Identity Not on file Sexual Orientation Not on file documented as of this encounter Plan of Treatment Not on file documented as of this encounter Procedures Procedure Name Priority Date/Time Associated Diagnosis Comments DERMATOPATHOLOGY Routine 03/18/2021 3:33 AM CDT documented in this encounter Results * DERMATOPATHOLOGY (03/18/2021 3:33 AM CDT) Case Report Dermatopathology Report Case: [id number] Authorizing Provider: Vinay Cardona MD Collected: 03/18/2021 03:33 AM Ordering Location: [facility] Received: 03/20/2021 07:31 AM Pathologist: Rach Bennett MD Specimen: Skin, right forearm 3:43 PM CDT DERMATOPATHOLOGY LABORATORY Final Diagnosis Specimen A. SKIN, right forearm: SUPERFICIAL AND MID PERIVASCULAR AND INTERSTITIAL LYMPHOHISTIOCYTIC INFILTRATE (L92.0) (see microscopic description and comment) 3:43 PM CDT DERMATOPATHOLOGY LABORATORY at 1543 CDT Clinical History GA vs lupus vs other. 3:43 PM CDT DERMATOPATHOLOGY LABORATORY Gross Description Specimen A: Received is one formalin filled container labeled with the patient's name and designated right forearm. The specimen consists of a punch biopsy measuring [id number]. Jar 0. 3:43 PM CDT DERMATOPATHOLOGY LABORATORY Microscopic Description Specimen A. SKIN, right forearm: There is a superficial and mid perivascular and interstitial lymphohistiocytic infiltrate. Significant alteration of collagen, interface changes, and periadnexal inflammation, are not seen. CD163 is positive in scattered histiocytes. Colloidal iron stain highlights mild dermal mucin deposition. Periodic acid-Brayan (PAS) stain fails to highlight fungal elements or significant basement membrane thickening in the available sections. Additional deeper sections were obtained and reviewed. COMMENT: In the correct clinical setting, these histologic features can be seen in interstitial-type granuloma annulare. Connective tissue disease is less favored due to the lack of more significant interface changes as well as lack of basement membrane thickening. 3:43 PM CDT DERMATOPATHOLOGY LABORATORY Disclaimer An external and internal positive and negative controls are appropriate for the histochemical, immunohistochemical and immunofluorescence stain(s) in this case (if any), except where stated explicitly. The performance characteristics of the stain(s) cited in this report were developed and its performance characteristic determined by the Dermatopathology Laboratory at [facility], directed by Dr. Tracie Banda. These tests need not be, and therefore are not, approved by the [place] Food and Drug Administration. The tests are used for clinical purposes. Billing Codes Specimen Charges Stain Charges 98141 1 [id number] 1 1 1 1 3:43 PM CDT DERMATOPATHOLOGY LABORATORY Embedded Images 3:43 PM CDT DERMATOPATHOLOGY LABORATORY Pathology/Cytolo gy TISSUE SPECIMEN FROM SKIN / Unknown 03/18/2021 3:33 AM CDT 03/20/2021 7:31 AM CDT us Vinay Cardona MD LAB - PATHOLOGY/CYTOLOGY ORDER LAURO Final Result DERMATOPATHOLOGY LABORATORY [facility] - Department of Dermatology [address] [phone] documented in this encounter Visit Diagnoses Not on filedocumented in this encounter
--- OUTSIDE RECORDS SUMMARY | 2025-04-24 08:11 | XMS_ITS | Clinical Summary ---
Author Organization [facility] Address [address], [address] [address] Phone Care Team Providers Care Help Desk Specialist Name Role Phone Robert Sarkar MD Primary Care Provider [phone] Allergies Active Allergy Reactions Criticality Noted Date Comments Latex Rash,Other (see Comments) 01/24/2016 blisters Medications Cholecalciferol (VITAMIN D PO) Take 50,000 Units by mouth once a week. Active Naproxen Sodium 220 MG Capsule Take by mouth as needed. Active FIBER SELECT GUMMIES PO Take by mouth daily. Active omeprazole (PRILOSEC) 40 MG CAPSULE DELAYED RELEASE Take 1 Cap by mouth 2 times daily (before meals). 180 Cap 3 6 Active Additional Information Patient taking differently:40 mg OralDAILY, Reported on 03/09/2016 allopurinol (ZYLOPRIM) 100 MG Tablet 6 Active ergocalciferol (VITAMIN D) 42879 UNIT Capsule 3 6 Active fenofibrate 160 MG Tablet 6 Active triamcinolone (KENALOG) 0.1 % Cream 0 6 Active methylPREDNISol one (MEDROL DOSPACK) 4 MG Tablet Therapy Pack Use as directed. 1 Each 0 6 Active raNITIdine (ZANTAC) 300 MG Tablet TK 1 T PO QHS 3 6 Active Cyanocobalamin (VITAMIN B-12 PO) Take 1 Tab by mouth daily. Active Family History Medical History Relation Name Comments Colon Cancer Father Diabetes Father borderline High Cholesterol Father No Known Problems Mother Relation Name Status Comments Father Alive Mother Social History Tobacco Use Types Packs/Day Years Used Date Smoking Tobacco: Former Cigarettes 1 20 0 07/19/1995 - 07/19/2015 Smokeless Tobacco: Never Alcohol Use Standard Drinks/Week Comments Yes 1 (1 standard drink = 0.6 oz pur e alcohol) rarely Comments No Sex and Gender Information Value Date Recorded Sex Assigned at Not on file Legal Sex Female 11:10 AM CDT Gender Identity Not on file Sexual Orientation Not on file Last Filed Vital Signs Vital Sign Reading Time Taken Comments Blood Pressure 128/80 04/20/2016 3:00 PM CDT Pulse 68 04/20/2016 3:00 PM CDT Temperature 36.2 C (97.2 F) 03/19/2016 10:15 AM CDT Respiratory Rate 18 04/20/2016 3:00 PM CDT Oxygen Saturation 99% 03/19/2016 10:15 AM CDT Inhaled Oxygen Concentration - - Weight 78.9 kg (174 lb) 04/20/2016 3:00 PM CDT Height 172.7 cm (5' 8) 04/20/2016 3:00 PM CDT Body Mass Index 26.46 04/20/2016 3:00 PM CDT Plan of Treatment Health Maintenance Due Date Last Done Comments Hepatitis C Virus (HCV) Screening 1972 TdaP Immunization 1972 Hepatitis B Immunization (1 of 3 - 19+ 3-dose series) 1991 Pap Smear 1993 Cervical Cancer Screening (CCS) 2002 HPV/Cotest 2002 Cologuard 2017 Colonoscopy 2017 Colorectal Cancer Screening 2017 Immunochemical Fecal Occult Blood 2017 Pneumococcal Immunization (5 0+ years) (1 of 1 - PCV) 2022 Zoster Immunization (1 of 2) 2022 Influenza Immunization (#1) 2025 SARS-COV-2 Immunization ( - 2023- season) 2025 Respiratory Syncytial Virus (RSV) Immunization (Adult) (1 - 1-dose 75+ series) 2047 Human Papillomavirus (HPV) Immunization Aged Out No longer eligible b ased on patient's age to complete this topic Meningococcal Immunization (ACWY) Aged Out No longer eligible based on patient's age to complete this topic Rotavirus Immunization Aged Out No lo nger eligible based on patient's age to complete this topic Care Teams Help Desk Specialist Relationship Specialty Start Date End Date Robert Sarkar MD [address] [place] [address] PCP - General Family Medicine 03/10/16
--- OUTSIDE RECORDS SUMMARY | 2025-04-24 08:11 | XMS_ITS | Clinical Summary ---
Author Organization [facility] Address [address] [place] [address] Care Team Providers Care Ell Teacher Name Role Phone Unavailable Primary Care Provider Unavailabl e Source Comments [facility],non-owned Affiliates and Associated Physician Practices is amultiple site organization consisting of ambulatory clinics and hospital sitesin [place], [place]. This disclosure is being madepursuant to the Care Everywhere program and may not contain all information available regarding this patient. Last updated 18.[facility] Social History Tobacco Use Types Packs/Day Years Used Date Smoking Tobacco: Never Assessed Comments Unknown Sex and Gender Information Value Date Recorded Sex Assigned at Not on file Legal Sex Female 4:04 PM CDT Gender Identity Not on file Sexual Orientation Not on file Plan of Treatment Health Maintenance Due Date Last Done Comments COLOGUARD (AGES 45-75) - COL ON CA SCREENING 1972 COLON MONITORING 1972 COLONOSCOPY - COLON CA SCREENING 1972 CT COLONOGRAPHY - COLON CA SCREENING 1972 Colorectal Cancer Screening 1972 FIT - COLON CA SCREENING 1972 FLEX SIG - COLON CA SCREENING 1972 LIPID TESTING 1972 MAMMOGRAM 1972 HIV SCREENING 1987 HEPATITIS C SCREENING 06/16/1990 DTAP/TDAP/TD VACCINES (1 - Tdap) 1991 HEPATITIS B VACCINE (1 of 3 - 19+ 3-dose series) 1991 PNEUMOCOCCAL VACCINE 50+ (1 of 1 - PCV) 2022 ZOSTER VACCINE (1 of 2) 2022 DEPRESSION SCREENING 07/19/2024 COVID-19 VACCINE (1 - 2023-2 5 season) 2025 INFLUENZA VACCINE (#1) 2025 HIB VACCINE Aged Out No longer eligi ble based on patient's age to complete this topic HPV VACCINE Aged Out No longer eligi ble based on patient's age to complete this topic MENINGOCOCCAL (Group B) VACC INE SHARED DECISION-MAKING Aged Out No longer eligibl e based on patient's age to complete this topic MENINGOCOCCAL GROUPS A/C/Y/W VACCINE Aged Out No longer eligible b ased on patient's age to complete this topic Insurance [facility]
--- OUTSIDE RECORDS SUMMARY | 2025-04-24 08:11 | XMS_ITS | Clinical Summary ---
Author Organization [facility] Address [address] [place] [id number] Care Team Providers Care District Superintendent Name Role Phone Unavailable Primary Care Provider Unavailabl e Social History Tobacco Use Types Packs/Day Years Used Date Smoking Tobacco: Never Assessed Comments Unknown Sex and Gender Information Value Date Recorded Sex Assigned at Not on file Legal Sex Female 7:28 PM CDT Gender Identity Not on file Sexual Orientation Not on file Plan of Treatment Health Maintenance Due Date Last Done Comments Cervical Cancer Screening Pa p Smear (Age 30 to 64) Every 3 Years 1972 Colorectal Cancer Screening Colonoscopy (10 Years) 1972 Annual Physical 1975 Hepatitis C 1990 Hepatitis B Vaccines (1 of 3 - 19+ 3-dose series) 1991 Cervical Cancer Screening Pa p with HPV Testing (Age 30 to 64) Every 5 Years 2002 Cervical Cancer Screening wi th HPV 2002 Mammogram Screening 2012 DTaP, Tdap and Td Vaccines ( 2 - Td or Tdap) 09/09/2019 09/09/2009 Pneumococcal Vaccine: 50+ Years (1 of 1 - PCV) 2022 Zoster Vaccines (1 of 2) 2022 COVID-19 Vaccine (3 - 2024-2 6 season) 2025 07/21/2021, 09/22/2020 Influenza Adult (#1) 2025 08/10/2019, 06/14/2017 Meningococcal B Vaccine Aged Out No l onger eligible based on patient's age to complete this topic Meningococcal Vaccine Aged Out No nabil addi eligible based on patient's age to complete this topic RSV Immunizations Under 20 Months Aged Out No longer eligible b ased on patient's age to complete this topic
== END 2025-04-24 08:06 | disposition home or self-care (01) ==
LOC: ANHFOHIMG 08:06
PROVIDERS: Visit Provider Emergency Medicine
DX: Z12.31 Encounter for screening mammogram for malignant neoplasm of breast (principal)
CPT/HCPCS: 77063; 77067

== ENCOUNTER 2025-06-01 03:18 | Day surgery (SDC) | payer BC, SELFPAY ==
--- NOTE | 2025-05-18 12:36 | SUR.PREOP ---
[facility] has started construction of its new state of the art ER which will open Spring 2026. With this, we anticipate parking may be a challenge for some our surgical patients and families. Parking spaces are limited but are available for all Surgical, obstetrics, and ER patients sharing this lot. If you arrive and find you are having a hard time finding a parking space, please note that we understand the challenges, please drive around the hospital and park near Hospital Entrance 1. When you enter this entrance, you can ask a volunteer to direct or take you back to the surgical waiting area to check in. We appreciate everyone?s understanding of these expected challenges while we build for your future. Report to the Outpatient Waiting Room, entrance under the green pavilion located off [address], at time _7AM__ on date _06/01/25__. Planned Procedure Time: _9AM__.? Time changes happen often and if your time is changed the preop area will call you the afternoon before. - You and your visitor will be asked to self-screen and do not enter if you have any COVID symptoms. Please call surgeon if you need to reschedule. - A mask is optional within the hospital at this time. Patients may have clear liquids (water, carbonated beverages, clear teas, apple juice) until 3 hours prior to surgery with a maximum of 20 ounces. - No food from midnight until time of surgery and no smoking, or chewing tobacco (or any form of nicotine). No chewing gum, candy or mints. Take only the following medications with a SIP of water on the morning of surgery: ___rizatriptan if needed___ DO NOT STOP ANY OF YOUR OTHER PRESCRIPTION MEDICATIONS PRIOR TO SURGERY EXCEPT THE FOLLOWING Hold all vitamins and supplements for 3 days per anesthesiologist. Medications to discontinue per physician __none__ Date to take last dose__05/28/25__ Please no make-up, nail slovenian, hairspray, perfume, deodorant, or body powder the day of surgery.? No jewelry (including any body piercings) or valuables the day of surgery, leave them at home.? Please take a shower or bath the night before, or the morning of, surgery with an antibacterial soap.? Wear comfortable, loose fitting clothing.? . - Jewelry must be removed prior to entering the operating room.? Rings and piercings that are not removed may be cut off. - The hospital will not accept responsibility for valuables.? - Please leave all valuables, including medications, at home the day of surgery. If you are going home after surgery, a licensed courtesy bus driver must drive you home.? - NO public transportation without another adult if you receive anesthesia. - We recommend that an adult stay with you for 24 hours following discharge. - We also recommend that you do not drive, make important decision, drink alcoholic beverages, or take any drugs that were not prescribed by your health care provider for at least 24 hours after your discharge time.. Follow any additional instructions given to you from your surgeon. Telephone instructions given to __Aisha___and asked if any additional questions and then verbalized understanding. Patient advised to call surgeon office or pre surgery nurse liaison [phone] if any additional questions.
[2025-05-18 12:42] VITALS: BMI 23.6
--- NOTE | 2025-05-28 07:33 | PM.IMHP ---
H&P: HPI History of Present Illness Date/Time: 05/28/25 07:33 Chief Complaint: vanessa Narrative: She reports concerns of stress incontinence today. This has been problematic for her for about 3 years but seems to have worsened this past year. She gets leakage with running, jumping, sneezing, laughing. This has impacted her daily life and she has limited her activities as a result of this. Feels that she has not able to exercise the way she would like due to incontinence. She has to wear pads with activity or if she is going to be out and about during the day. She denies urge incontinence. Denies urgency or frequency. Review of Systems Review of Systems: All systems reviewed & are unremarkable except as noted in HPI and below PMFSH Past Medical History Medical History Back pain Poor venous access SOB (shortness of breath) Lupus anticoagulant positive Lupus Hx of migraine headaches Irritable bowel disease Surgical History Surgical History H/O lithotripsy History of endometrial ablation Family History Family History Father Carcinoma of colon Social History Social History Smoking packs per day: 1 Smoking cigarettes per day: 20.0 Years smoked: 20 Smoking pack-years: 20.00 Smoking status: Former smoker Tobacco type: cigarettes Smoking end date: 07/19/16 Alcohol intake: current Alcohol use details: RARE Substance use: never Substance use type: marijuana Other substance usage details: evenings Living arrangements: with family Gender identity (if verbalized by the patient): Female Spiritual care concerns: No Meds Home Medications and Allergies Home Medications ?Medication ?Instructions ?Recorded ?Confirmed ?Type lidocaine-prilocaine 2.5 %-2.5 % 1 applic topical ONCE PRN patient 11/11/21 05/18/25 Rx topical cream has a port #5 grams belimumab 400 mg intravenous 400 mg IV ONCE #1 ea 10/14/22 05/18/25 Rx solution (Benlysta) ergocalciferol (vitamin D2) 1,250 See Rx Instructions .Route 12/02/22 05/18/25 Rx mcg (50,000 unit) capsule .COMPLEX #12 caps hydroxychloroquine 200 mg tablet 300 mg PO DAILY 03/18/23 05/18/25 History rizatriptan 10 mg tablet See Rx Instructions .Route 03/17/24 05/18/25 Rx .COMPLEX #10 tabs omeprazole 40 mg capsule,delayed 40 mg PO DAILY #30 caps 11/07/24 05/18/25 Rx release Allergies Allergy/AdvReac Type Severity Reaction Status Date / Time amoxicillin Allergy Severe Rash Verified 05/18/25 12:38 latex Allergy Unknown Rash Verified 05/18/25 12:38 Exam Narrative: + urethral mobility Assessment and Plan Assessment and plan (1) VANESSA (stress urinary incontinence, female): Code(s): N39.3 - Stress incontinence (female) (male) Status: Acute Plan We discussed the treatment options for stress urinary incontinence including pelvic floor muscle rehabilitation, transurethral bulking agents, and mid-urethral sling procedures.? She is most interested in the latter.? We discusses the alternatives, benefits, and risks.? We discusses specifically the risks of bleeding, infection, failure to correct incontinence, damage to the urinary tract, vaginal mesh extrusion, urinary tract mesh erosion, obstructive voiding requiring a secondary procedure, de anton or worsening irritative voiding symptoms, post-operative hip and leg pain, and the risk of anesthesia.? She was also counseled on post-operative activity restrictions.? She wishes to proceed.
--- OUTSIDE RECORDS SUMMARY | 2025-06-01 03:21 | XMS_ITS | Clinical Summary ---
Author Organization [facility] [employer] Address [address] [place] [address] Care Team Providers Care Subcontract Manager Name Role Phone Unavailable Primary Care Provider Unavailabl e Source Comments [facility],non-owned Affiliates and Associated Physician Practices is amultiple site organization consisting of ambulatory clinics and hospital sitesin [place], [place], [place] and [place]. This disclosure is being madepursuant to the Care Everywhere program and may not contain all information available regarding this patient. Last updated 18.[facility] Social History Tobacco Use Types Packs/Day Years [...] patient's age to complete this topic Insurance [facility]
--- OUTSIDE RECORDS SUMMARY | 2025-06-01 03:21 | XMS_ITS | Clinical Summary ---
Author Organization [facility] [address] [place] [phone] Care Team Providers Care Manager Life Insurance Name Role Phone Davian Lawton MD Primary Care Provider [phone] Allergies Active Allergy Reactions Criticality Noted Date [...] Antinuclear factor positive 07/17/2016 Overview (10/29/2016): Positive GIAN (antinuclear antibody) Surgical History Surgery Date Site/Laterality Comments OTHER [...] on file Legal Sex Female 4:16 AM INVESTIGATIVE ANALYST Gender Identity Not on file Sexual Orientation Not on file Last Filed Vital Signs Vital Sign Reading Time Taken Comments Blood Pressure 102/67 01/26/2025 9:49 AM CDT Pulse 78 01/26/2025 9:49 AM CDT Temperature 36.5 C (97.7 F) 01/26/2025 9:49 AM CDT Respiratory Rate 17 07/23/2023 8:45 AM INVESTIGATIVE ANALYST Oxygen Saturation 100% 11/16/2023 9:57 AM CDT [...] Procedure Name Priority Date/Time Associated Diagnosis Comments HEPATITIS C ANTIBODY Routine 10/23/2022 2:58 PM CDT Systemic lupus erythematosus, unspecified SLE type, unspecified organ involvement status (HCC) High risk medication use from Last 3 Months or Most Recently Relevant to Health Maintenance Results * Hepatitis C antibody (10/23/2022 2:58 PM CDT) Hep C Ab NON-REACTI VE NON-REACT VERN [facility] SIGNAL TO CUT-OFF 0.07 <1.00 [facility] Comment: HCV antibody was non-reactive. There is no laboratory evidence of HCV infection. In most cases, no further action is required. However, if recent HCV exposure is suspected, a test for HCV RNA (test code 84949) is suggested. For additional information please refer to http://education.Widbook/faq/SYO21a0 (This link is being provided for informational/ educational purposes only.) Blood 10/23/2022 2:58 PM CDT 10/23/2022 2:59 PM CDT Narrative [facility] - 10/27/2022 10:19 AM CDT FASTING:NO FASTING: NO Zhao Lopez MD LAB MICROBIOLOGY - GENERAL ORDERABLES Final Result ALEXANDER [facility] [address] [place] [address] from Last 3 Months or Most Recently Relevant to Health Maintenance [place] Care Teams Manager Life Insurance Relationship Specialty Start Date End Date Davian Lawton MD [address] [place] [address] PCP - General Family Medicine 08/04/23
--- OUTSIDE RECORDS SUMMARY | 2025-06-01 03:21 | XMS_ITS | Encounter Summary ---
Author Organization [facility] Address [address] [place] [address] Care Team Providers Care Photonics Engineering Technician Name Role Phone Unavailable Primary Care Provider Unavailabl e Encounter Details Date Type Department Care Team (Late st Contact Info) Description 03/20/2021 Lab Requisition [facility] [address] [place] [id number] Vinay Cardona MD [address] [place], [place] [id number] Social History Tobacco Use Types Packs/Day Years [...] AM CDT) Case Report Dermatopathology Report Case: [id number] Authorizing Provider: Vinay Cardona MD Collected: 03/18/2021 03:33 AM Ordering Location: [facility] Received: 03/20/2021 07:31 AM Pathologist: [...] specimen consists of a punch biopsy measuring [id number]. Jar 0. 3:43 PM CDT DERMATOPATHOLOGY LABORATORY [...] characteristic determined by the Dermatopathology Laboratory at [facility], directed by Dr. Tracie Banda. These tests need not be, and therefore are not, approved by the [place] Food and Drug Administration. The tests are used for clinical purposes. Billing Codes Specimen Charges Stain Charges 03226 1 [id number] 1 1 1 1 3:43 PM CDT DERMATOPATHOLOGY LABORATORY Embedded Images 3:43 PM CDT DERMATOPATHOLOGY LABORATORY Pathology/Cytolo gy TISSUE SPECIMEN FROM SKIN / Unknown 03/18/2021 3:33 AM CDT 03/20/2021 7:31 AM CDT us Vinay Cardona MD LAB - PATHOLOGY/CYTOLOGY ORDER LAURO Final Result DERMATOPATHOLOGY LABORATORY [facility] - Department of Dermatology [address], [address] [phone] documented in this encounter Visit Diagnoses Not on filedocumented in this encounter
--- OUTSIDE RECORDS SUMMARY | 2025-06-01 03:21 | XMS_ITS | Clinical Summary ---
Author Organization [facility] Address [address] [place] [address] Care Team Providers Care Shoe Stitcher Name Role Phone Unavailable Primary Care Provider [...] 09/22/2020 Influenza Adult (#1) 2025 08/10/2019, 06/14/2017 Hepatitis A Vaccines Aged Out No long er eligible based on patient's age to complete this topic Meningococcal B Vaccine Aged Out No l onger eligible based on patient's age to complete this topic Meningococcal Vaccine Aged Out No nabil addi eligible based on patient's age to complete this topic RSV Immunizations Under 20 Months Aged Out No longer eligible b ased on patient's age to complete this topic
[2025-06-01 07:00] VITALS: BP 114/76; PULSE 67; RESP 18; TEMP 36.1; O2SAT 98
--- NOTE | 2025-06-01 07:14 | WPDHPUPDATE1 ---
History and Physical Update Update Date/Time: 06/01/25 07:14 History and Physical has been reviewed, including an updated exam of the patient. There are NO changes in the patient's condition. Risks, benefits, and alternatives have been discussed and questions answered. Patient agrees to proceed with procedure.
[2025-06-01] MEDS: LACTATED RINGERS 1,000 ML 30 ML IV CONT (07:15)
[2025-06-01 07:33] LABS: BEDSIDEPREGUCG Negative (Negative)
--- NOTE | 2025-06-01 07:34 | WPDANESEPPF ---
Anes - Initial Pre Proc Eval Procedure: Operation Date: 06/01/25 09:00 Proposed Procedures p Urethral Sling - Baldo Ryan MD Date/Time: 06/01/25 07:34 Surgeon: Baldo Ryan MD Pre Op Diagnosis: stress incont Patient Data Age: 54 Gender: F Height: 1.73 m Weight: 67.9 kg Last Vital Signs Temp 36.1 C L 06/01/25 07:00 Pulse 67 06/01/25 07:00 Resp 18 06/01/25 07:00 BP 114/76 06/01/25 07:00 Pulse Ox 98 06/01/25 07:00 O2 Del Method Room Air 06/01/25 07:00 Allergies Allergy/AdvReac Type Severity Reaction Status Date / Time amoxicillin Allergy Severe Rash Verified 06/01/25 07:08 latex Allergy Unknown Rash Verified 06/01/25 07:08 Home Medications ?Medication ?Instructions ?Recorded ?Confirmed ?Type lidocaine-prilocaine 2.5 %-2.5 % 1 applic topical ONCE PRN patient 11/11/21 06/01/25 Rx topical cream has a port #5 grams belimumab 400 mg intravenous 400 mg IV ONCE #1 ea 10/14/22 05/18/25 Rx solution (Benlysta) ergocalciferol (vitamin D2) 1,250 See Rx Instructions .Route 12/02/22 06/01/25 Rx mcg (50,000 unit) capsule .COMPLEX #12 caps hydroxychloroquine 200 mg tablet 300 mg PO DAILY 03/18/23 06/01/25 History rizatriptan 10 mg tablet See Rx Instructions .Route 03/17/24 05/18/25 Rx .COMPLEX #10 tabs omeprazole 40 mg capsule,delayed 40 mg PO DAILY #30 caps 11/07/24 06/01/25 Rx release Laboratory Tests 06/01/25 07:05 POC Urine HCG, Qual Negative (Negative) Patient hx anesthesia problems: none Family hx anesthesia problems: none Results Review: All pre-operative results and documents have been reviewed as part of the pre-operative evaluation. [facility] Past Medical History Medical History Back pain Poor venous access SOB (shortness of breath) Lupus anticoagulant positive Lupus Hx of migraine headaches Irritable bowel disease Surgical History Surgical History H/O lithotripsy History of endometrial ablation Family History Family History Father Carcinoma of colon Social History Social History Smoking packs per day: 1 Smoking cigarettes per day: 20.0 Years smoked: 20 Smoking pack-years: 20.00 Smoking status: Former smoker Tobacco type: cigarettes Smoking end date: 07/19/16 Alcohol intake: current Alcohol use details: RARE Substance use: never Substance use type: does not use Living arrangements: with family Gender identity (if verbalized by the patient): Female Spiritual care concerns: No Anes - Eval Final PreProcedure Day of Procedure 06/01/25 07:34 Patient weight: normal Heart: regular rate and rhythm Lungs: clear to auscultation Airway: Mallampati scale class II Neurological: alert and oriented Last oral intake: >/= 8 hours ASA classification: III Emergent: no Anesthetic plan: proceed Anesthesia type and monitoring: general GIVS and standard monitoring Results Review: All pre-operative results and documents have been reviewed as part of the pre-operative evaluation. Informed Consent: The patient's anesthetic plan and its attendant risks and benefits were discussed with the patient/family/POA. Questions were solicited and answers provided to the satisfaction of the patient/family/POA.
[2025-06-01] MEDS: SCOPOLAMINE 1 MG PATCH 1 PATCH TRANSDERM (07:37)
[2025-06-01] MEDS: ceFAZolin 2 GM in SODIUM CHLORIDE 0.9% IV 50 ML 100 ML IVPB (09:05)
[2025-06-01] MEDS: BUPIVACAINE/EPINEPHRINE 0.5% 50 ML VIAL 30 ML INFILTRATE (09:15)
--- NOTE | 2025-06-01 09:31 | W.PM.PROC2 ---
Procedure Note - Detailed Date of Procedure 06/01/25 Pre-op Diagnosis stress incont Post-op Diagnosis Same Procedure Performed mid urethral sling cystoscopy Surgeon Baldo Ryan MD Anesthesia MAC and Local Indications This is a female with confirm stress urinary incontinence. She desires surgical correction. She understands the risks of bleeding, infection, injury to the urinary tract, vaginal mesh extrusion, urinary tract mesh erosion, obstructive voiding requiring a secondary procedure, hip and leg pain, dyspareunia, inability to improve overactive bladder symptoms. She agrees to proceed. Description of Procedure She was correctly identified. Informed consent obtained. She was brought the operating room. She was given appropriate anesthesia. She was given appropriate perioperative antibiotics. A time-out performed. I marked out the site of the inner thigh incisions. I anesthetized the skin and made those incisions. I anesthetized the anterior vaginal wall over the mid urethra. I made a 1 cm incision. I dissected out laterally taking great care not to injure the refilled vaginal wall. I passed the helical trocars. First on the left. Then on the right. I did this from the thigh incision towards the vaginal incision. The sling was connected to the trocars and brought out through the thigh incision. I tensioned the sling appropriately. I cut and the plastic sheaths. I then closed the incision with 2 0 Vicryl. On cystoscopy there is no tumors or surgical artifact. There was no surgical artifact in the urethra. I cut the excess sling material. Close incisions with glue. She was awakened and transferred to the PACU in stable condition. Implants Urethral sling Estimated Blood Loss 20 Drains No Packing No Pathology None sent Complications No immediate complications Condition Stable Disposition PACU
[2025-06-01 09:34] VITALS: BP 108/60; PULSE 68; RESP 20; O2SAT 98
[2025-06-01 10:00] VITALS: BP 108/60; PULSE 79; RESP 20
[2025-06-01 10:30] VITALS: BP 124/71; PULSE 52; RESP 20
--- NOTE | 2025-06-01 10:47 | SUR.PHASEII ---
1020 - pt stated that she urinated without difficulty and went a large amount
--- NOTE | 2025-06-01 11:04 | SUR.PHASEII ---
1040 - pt meets anesthesia criteria, waiting for ride
== END 2025-06-01 10:52 | disposition home or self-care (01) ==
PROVIDERS: Visit Provider Urology
PROC: (CPT 57288; principal; 2025-06-01 09:00)
DX: N39.3 Stress incontinence (female) (male) (principal); K58.9 Irritable bowel syndrome, unspecified; D68.62 Lupus anticoagulant syndrome; F12.90 Cannabis use, unspecified, uncomplicated; Z98.890 Other specified postprocedural states; Z98.891 History of uterine scar from previous surgery; Z87.891 Personal history of nicotine dependence; Z80.0 Family history of malignant neoplasm of digestive organs
CPT/HCPCS: 57288; J0690; A9270; C1771; J2003; J2250; J2704; J3010; J7030; J7120